=== PATIENT | female | born 1955 | race Caucasian/White ===

== ENCOUNTER 2016-11-27 17:14 | Emergency (ER) | payer BC ==
[2016-11-27 17:27] VITALS: RESP 16; TEMP 97.5
--- NOTE | 2016-11-27 18:05 | EDPHY ---
H & P Time Seen by Provider: 11/27/16 17:38 HPI/ROS: CHIEF COMPLAINT: Right leg DVT HISTORY OF PRESENT ILLNESS: Patient fell on her knees 2 weeks ago, mechanically not syncope, and has been having some right calf pain which did not go way. Her primary care physician ordered ultrasound today which showed DVT in the right leg. She denies chest pain or shortness of breath. Her left leg was getting better but her right leg is still swollen. She does not have any bony tenderness. REVIEW OF SYSTEMS: No fever or chills. She has been taking Advil which helps with the right calf pain. No palpitations or syncope. Not lightheaded. PAST MEDICAL HISTORY: Depression on Prozac Social history: Here with her brother. General Appearance: Alert and conversant, cooperative. Full sentences, no respiratory distress. Bruising on both knees. Full range of motion of both knees and ankles. Left calf compartment is soft and left foot is nontender with normal motor sensory and vascular. Right calf is tender but compartment is also soft with normal range of motion of knee and ankle. More swollen than the left side. A little bit of ecchymosis mid calf. No bony tenderness in the right lower extremity. Normal dorsalis pedis pulse, motor and sensory. Emergency Department course/MDM: Patient would prefer NOAC with no bridging. We will choose Eliquis with creatinine 0.6. Does not have symptoms or signs of pulmonary embolism. Warned bicycle helmet is mandatory. No recreational bicycle riding. Warned no Advil or aspirin or other nonsteroidals. 10mg po bid x 1 week then per PCP. Smoking Status: Never smoked Constitutional: Initial Vital Signs Temperature (C) 36.4 C 11/27/16 17:23 Heart Rate 87 11/27/16 17:23 Respiratory Rate 16 11/27/16 17:23 Blood Pressure 141/85 H 11/27/16 17:23 O2 Sat (%) 98 11/27/16 17:23 O2 Delivery Mode Room Air Allergies/Adverse Reactions: No Known Allergies Allergy (Unverified 11/27/16 17:27) Home Medications: Medication Instructions Recorded Advil 11/27/16 Apixaban [Eliquis] 10 mg PO BID 7 Days 11/27/16 Prozac 20 MG (*) 11/27/16 MDM/Departure - MDM Medications Given: Discontinued Medications Acetaminophen (Tylenol) 650 mg PO EDNOW ONE Stop: 11/27/16 18:14 Last Admin: 11/27/16 18:23 Dose: 650 mg Apixaban (Eliquis) 10 mg PO EDNOW ONE Stop: 11/27/16 18:12 Last Admin: 11/27/16 18:57 Dose: 10 mg - Depart Disposition: Home, Routine, Self-Care Clinical Impression: DVT (deep venous thrombosis) Qualifiers: DVT location: lower extremity Affected thrombotic vein of extremity: unspecified vein of extremity Chronicity: acute Laterality: right Qualified Code (s): I82.401 - Acute embolism and thrombosis of unspecified deep veins of right lower extremity Condition: Good Instructions: Deep Venous Thrombosis (ED) Additional Instructions: No Advil or aspirin. You will need additional blood thinners prescribed by her primary care physician. No riding of your bicycle unless your wearing a helmet. No riding of the bicycle for recreation until cleared by your primary care physician. Prescriptions: Apixaban [Eliquis] 10 mg PO BID 7 Days Referrals: Brad Santiago [Primary Care Provider] - 2-3 days, call for appt.
[2016-11-27 18:09] LABS: % IMMATURE GRANULYOCYTES 0.3 % (0.0-1.1); ABSOLUTE IMMATURE GRANULOCYTES 0.04 10^3/uL (0.00-0.10); ADD DIFF? NO; ADD MORPH? NO; ADD SCAN? NO; ATYPICAL LYMPHOCYTE FLAG 0 (0-99); FRAGMENT RBC FLAG 0 (0-99); HEMATOCRIT 36.7 % (38.0-47.0); HEMOGLOBIN 11.8 g/dL (12.6-16.3); LEFT SHIFT FLG 0 (0-99); LIPEMIA HEMOLYSIS FLAG 80 (0-99); MEAN CELL HEMOGLOBIN 27.5 pg (27.9-34.1); MEAN CELL HEMOGLOBIN CONCENTR. 32.2 g/dL (32.4-36.7); MEAN CELL VOLUME 85.5 fL (81.5-99.8); MEAN PLATELET VOLUME 9.4 fL (8.7-11.7); PLATELET CLUMPS FLAG 0 (0-99); PLATELET COUNT 175 10^3/uL (150-400); RED BLOOD CELL COUNT 4.29 10^6/uL (4.18-5.33); RED CELL DISTRIBUTION WIDTH 14.8 % (11.5-15.2)
[2016-11-27] MEDS ORDERED: APIXABAN 5 MG TAB PO ONE (18:11)
[2016-11-27] MEDS ORDERED: ACETAMINOPHEN 325 MG TAB PO ONE (18:13)
[2016-11-27 18:18] LABS: APTT 24.1 SEC (23.0-38.0); INR 1.13 (0.83-1.16); PROTIME(PATIENT) 14.4 SEC (12.0-15.0)
[2016-11-27 18:27] VITALS: BP 130/83; PULSE 77; O2SAT 94
== END 2016-11-27 18:58 | disposition home or self-care (01) ==
DX: I82.401 Acute embolism and thrombosis of unspecified deep veins of right lower extremity (principal)
CPT/HCPCS: 82947-QW

== ENCOUNTER 2016-12-03 16:50 | Emergency (ER) | payer BC ==
[2016-12-03 17:00] VITALS: RESP 16
--- NOTE | 2016-12-03 17:04 | EDPHY ---
H & P Stated Complaint: Slightly "queasy" x few days;feels like heart is racing; recent dx bilat DVT Time Seen by Provider: 12/03/16 17:04 HPI/ROS: CHIEF COMPLAINT: Presyncope, poor appetite HISTORY OF PRESENT ILLNESS: The patient was diagnosed with bilateral lower extremity DVT on 11/27. She was started on Eliquis at that point time. Today while at work she developed an episode of presyncope. She reports she has had a fairly poor appetite over the past several weeks. The patient had been taking a fair amount of NSAIDs prior to her diagnosis of DVT week ago. The patient did see the on-call physician for her primary care provider on Saturday of this week to discuss her Eliquis therapy she has no complaints of melena. The patient denies chest pain although she did have an episode of palpitations earlier today. The patient currently denies any acute complaints of abdominal pain, chest pain or difficulty breathing. REVIEW OF SYSTEMS: A comprehensive 10 point review of systems is otherwise negative aside from elements mentioned in the history of present illness. Source: Patient Exam Limitations: No limitations - Medical/Surgical History Hx Asthma: No Hx Chronic Respiratory Disease: No Hx Diabetes: No Hx Cardiac Disease: No Hx Renal Disease: No Hx Cirrhosis: No Hx Alcoholism: No Hx HIV/AIDS: No Hx Splenectomy or Spleen Trauma: No Other PMH: pmh:depression, DVT (11/2016). psh:none - Social History Smoking Status: Former smoker - Physical Exam Exam: General Appearance: Thin female, no acute distress Eyes: Pupils equal and round no pallor or injection ENT, Mouth: Mucous membranes moist Respiratory: There are no retractions, lungs are clear to auscultation Cardiovascular: Regular rate and rhythm Gastrointestinal: Abdomen is soft and nontender, no masses, bowel sounds normal Neurological: A&O, normal motor function, normal sensory exam, normal cranial nerves Skin: Warm and dry, no rashes Musculoskeletal: Neck is supple nontender Extremities: symmetrical, full range of motion Constitutional: Initial Vital Signs Temperature (C) 36.5 C 12/03/16 16:55 Heart Rate 86 12/03/16 16:55 Respiratory Rate 16 12/03/16 16:55 Blood Pressure 126/79 H 12/03/16 16:55 O2 Sat (%) 97 12/03/16 16:55 O2 Delivery Mode Room Air Allergies/Adverse Reactions: No Known Allergies Allergy (Verified 12/03/16 16:54) Home Medications: Medication Instructions Recorded Advil 11/27/16 Apixaban [Eliquis] 10 mg PO BID 7 Days 11/27/16 Prozac 20 MG (*) 11/27/16 Medical Decision Making - Diagnostics EKG Interpretation: EKG: Complete interpretation has been separately recorded in the [facility] archive. Summary impression: Sinus rhythm, rate 72 ED Course/Re-evaluation: I reviewed the results of the patient's past medical records including her ultrasound results from 11/27 and laboratory testing. The patient presents to the ED with presyncope in the setting of poor appetite over the past week. The patient is currently on a proton pump inhibitor. She is not taking NSAIDs. She has had no melena. The patient's hematocrit is stable. She has been on Eliquis for 6 days. She has no complaints of active chest pain or dyspnea. The patient denies any ongoing complaints of abdominal pain. She has had no nausea or vomiting. I do believe that she was simply presyncopal today. At this point time I do feel she can be discharged home with instructions to increase her fluid intake. She should follow up with her primary care provider for a recheck within the week. She should return to the ED for any chest pain, shortness of breath or other concerns. Differential Diagnosis: Differential diagnosis considered includes palpitations, anemia, dehydration, metabolic abnormality, renal failure - Data Points Laboratory Results: Laboratory Results 12/03/16 17:23 12/03/16 17:23 12/03/16 12/03/16 17:23 17:23 WBC 11.69 10^3/uL H 10^3/uL (3.80-9.50) RBC 4.57 10^6/uL 10^6/uL (4.18-5.33) Hgb 12.3 g/dL L g/dL (12.6-16.3) Hct 39.0 % % (38.0-47.0) MCV 85.3 fL fL (81.5-99.8) MCH 26.9 pg L pg (27.9-34.1) MCHC 31.5 g/dL L g/dL (32.4-36.7) RDW 15.0 % % (11.5-15.2) Plt Count 190 10^3/uL 10^3/uL (150-400) MPV 9.7 fL fL (8.7-11.7) Neut % (Auto) 77.5 % H % (39.3-74.2) Lymph % (Auto) 8.4 % L % (15.0-45.0) [place] % (Auto) 8.5 % % (4.5-13.0) Eos % (Auto) 4.8 % % (0.6-7.6) Baso % (Auto) 0.4 % % (0.3-1.7) Nucleat RBC Rel Count 0.0 % % (0.0-0.2) Absolute Neuts (auto) 9.06 10^3/uL H 10^3/uL (1.70-6.50) Absolute Lymphs (auto) 0.98 10^3/uL L 10^3/uL (1.00-3.00) Absolute Monos (auto) 0.99 10^3/uL H 10^3/uL (0.30-0.80) Absolute Eos (auto) 0.56 10^3/uL H 10^3/uL (0.03-0.40) Absolute Basos (auto) 0.05 10^3/uL 10^3/uL (0.02-0.10) Absolute Nucleated RBC 0.00 10^3/uL 10^3/uL (0-0.01) Immature Gran % 0.4 % % (0.0-1.1) Immature Gran # 0.05 10^3/uL 10^3/uL (0.00-0.10) Sodium 135 mEq/L mEq/L (134-144) Potassium 4.1 mEq/L mEq/L (3.5-5.2) Chloride 96 mEq/L L mEq/L (97-110) Carbon Dioxide 27 mEq/l mEq/l (22-31) Anion Gap 12 mEq/L mEq/L (8-16) BUN 15 mg/dL mg/dL (7-23) Creatinine 0.7 mg/dL mg/dL (0.6-1.0) Estimated GFR > 60 Glucose 81 mg/dL mg/dL (70-100) Calcium 9.7 mg/dL mg/dL (8.5-10.4) Departure - Departure Disposition: Home, Routine, Self-Care Clinical Impression: Pre-syncope Condition: Good Instructions: Syncope (ED) Additional Instructions: 1. Please try and increase your fluid intake. 2. Please schedule a follow-up appointment with your primary care provider for any ongoing symptoms past 2-3 days. 3. Return to the ED for any racing heart, chest pain, difficulty breathing or other concerns. Referrals: Brad Santiago [Primary Care Provider] - As per Instructions
--- NOTE | 2016-12-03 17:16 | CPEKG ---
Heart Rate: 72 RR Interval: 833 P-R Interval: 132 QRSD Interval: 100 QT Interval: 408 QTC Interval: 447 P [place]: 71 QRS [place]: 6 T Wave [place]: 33 EKG Severity - NORMAL ECG - EKG Impression: SINUS RHYTHM Electronically Signed By: Negrito Deng 03-Dec-2016 19:51:47
[2016-12-03 17:35] LABS: % IMMATURE GRANULYOCYTES 0.4 % (0.0-1.1); ABSOLUTE IMMATURE GRANULOCYTES 0.05 10^3/uL (0.00-0.10); ADD DIFF? NO; ADD MORPH? NO; ADD SCAN? NO; ATYPICAL LYMPHOCYTE FLAG 0 (0-99); FRAGMENT RBC FLAG 0 (0-99); HEMOGLOBIN 12.3 g/dL (12.6-16.3); LEFT SHIFT FLG 0 (0-99); LIPEMIA HEMOLYSIS FLAG 80 (0-99); MEAN CELL HEMOGLOBIN 26.9 pg (27.9-34.1); MEAN CELL HEMOGLOBIN CONCENTR. 31.5 g/dL (32.4-36.7); MEAN CELL VOLUME 85.3 fL (81.5-99.8); MEAN PLATELET VOLUME 9.7 fL (8.7-11.7); PLATELET CLUMPS FLAG 10 (0-99); PLATELET COUNT 190 10^3/uL (150-400); RED BLOOD CELL COUNT 4.57 10^6/uL (4.18-5.33)
[2016-12-03 17:51] LABS: ANION GAP 12 mEq/L (8-16); CALCIUM 9.7 mg/dL (8.5-10.4); CARBON DIOXIDE 27 mEq/l (22-31); CHLORIDE 96 mEq/L (97-110); CREATININE 0.7 mg/dL (0.6-1.0); GLOMERULAR FILTRATION RATE > 60; GLUCOSE 81 mg/dL (70-100); POTASSIUM 4.1 mEq/L (3.5-5.2); SODIUM 135 mEq/L (134-144)
[2016-12-03] MEDS ORDERED: NS 1,000 ML IV ONE (18:00)
[2016-12-03 19:23] VITALS: BP 139/85; PULSE 78; TEMP 98.1; O2SAT 95
== END 2016-12-03 19:22 | disposition home or self-care (01) ==
DX: R55 Syncope and collapse (principal); E86.9 Volume depletion, unspecified; Z87.891 Personal history of nicotine dependence

== ENCOUNTER 2016-12-04 20:00 | Inpatient (IN) | payer BC ==
--- NOTE | 2016-12-04 20:16 | EDPHY ---
H & P Time Seen by Provider: 12/04/16 20:04 HPI/ROS: CHIEF COMPLAINT: Left arm weakness and off balance HISTORY OF PRESENT ILLNESS: This 61-year-old woman was seen in the emergency department on 11/27 and started on Eliquis for right leg DVT. She was seen in the emergency department last night for presyncope and hydrated and felt better. Today around 10:00 a.m. she felt off balance and a little confused. She felt weak in her left hand. Symptoms moderate and not better worse with position. She felt like she was almost going to fall twice. No nonsteroidals. No fall or head trauma since started on Eliquis. REVIEW OF SYSTEMS: Eye: no change in vision or double vision ENT: no sore throat Cardiac: no chest pain or syncope Pulmonary: no cough or SOB Abdomen: no vomiting, diarrhea, abdominal pain Musculoskeletal: no back pain or neck pain, no new trauma Skin: no rash Neuro: As in HPI, no headache Constitutional: no fever : no urinary symptoms A comprehensive 10 point review of systems is otherwise negative aside from elements mentioned in the history of present illness. PAST MEDICAL HISTORY: DVT and depression Social history: No alcohol. Here with her brother. General Appearance: Alert and cooperative. Eyes: No scleral icterus. Pupils both reactive. ENT, Mouth: Normal mucous membranes. No tongue abrasion. Respiratory: Normal respiratory effort, breath sounds equal, lungs are clear to auscultation. Cardiovascular: Regular rate and rhythm. Gastrointestinal: Abdomen is soft and non tender. Neurological: Alert and oriented x3. Normally conversant. Left clean rice grader and reel tender strength and left leg strength are 4-5. Extraocular motion intact. She is able to walk unassisted but appears to have truncal ataxia. Skin: Warm and dry, no rashes. Musculoskeletal: No peripheral edema and no joint swelling. Psychiatric: Not agitated. Emergency Department course/MDM: EKG, CBC electrolytes, emergent noncontrast head CT to evaluate for intracranial bleeding. Not a stroke alert despite deficits onset within the last 12 hours because she is anticoagulated on Eliquis. Last known normal 10: [address] head reviewed Dr. Ana Francois at 2048. Small amount of medial temporal blood seen on noncontrast per her reading. 2054: Consult with Dr. Slater neurosurgery, who personally saw patient in emergency department, recommended MRI brain and cervical spine. Per Dr. Francois CTA shows no large vessel occlusion. Patient had sudden onset of expressive aphasia. Plan for MRI. Discussed with [facility] Dr. Chatman at 2145. Recommended MRI but no other acute emergent treatment at this time. 8: MRI reviewed personally and interpreted shows multiple foci of ischemic stroke on diffusion-weighted imaging. Admission to step-down. Reviewed with Dr. Francois radiology at 11:15 p.m. 2340: MRI and case in detail including Eliquis and DVT discussed with [facility] Neuro, Dr. Garces recommends stopping Eliquis, IV heparin drip unfractionated no loading bolus. 2345: Generalized tonic clonic seizure. Keppra load ordered 1 gram. Ativan 2mg IV, repeat CT scan head. Start heparin in ED if no acute bleed. Brother kept informed. Admit ICU. 0045: Maintaining airway on nasal cannula on return from CT, does not need intubation for airway protection at this time. Smoking Status: Former smoker Constitutional: Initial Vital Signs Temperature (C) 36.9 C 12/04/16 20:05 Heart Rate 91 12/04/16 20:05 Respiratory Rate 14 12/04/16 20:05 Blood Pressure 141/93 H 12/04/16 20:05 O2 Sat (%) 95 12/04/16 20:05 O2 Delivery Mode Room Air O2 (L/minute) 2 Allergies/Adverse Reactions: No Known Allergies Allergy (Verified 12/03/16 16:54) Home Medications: Medication Instructions Recorded Acetaminophen [Tylenol 325mg (*)] 325 mg PO PRN PRN 12/04/16 Apixaban [Eliquis] 5 mg PO BID 12/04/16 FLUoxetine [Prozac 10 MG (*)] 10 mg PO QID 12/04/16 buPROPion XL [Wellbutrin Xl] 150 mg PO DAILY 12/04/16 Medical Decision Making - Diagnostics EKG Interpretation: 12-lead EKG interpreted by me; official reading is in trace master. My interpretation is sinus rhythm with incomplete right bundle branch block Imaging Results: Imaging Impressions Head CT 12/04/16 20:15 Impression: 1. Focal hyperdensity medial inferior right temporal lobe, suspicious for small intraparenchymal bleed. 2. Subjacent area of wedge-shaped encephalomalacia that is suggestive of previous trauma or stroke. 3. I am not definitive that any of the above findings would explain left-sided leg and arm weakness. If clinically indicated, MRI of the brain can be performed for further assessment. Findings and recommendations discussed with Anival Cisneros M.D., at 2046 hours, on December 04, 2016. Final report concurs with initial preliminary interpretation. Head CTA 12/04/16 20:36 Impression: Normal. Findings and recommendations discussed with ANIVAL CISNEROS at 2119 hour, 2016. Final report concurs with initial preliminary interpretation. Neck CTA 12/04/16 20:36 Impression: Nothing acute. Findings and recommendations discussed with ANIVAL CISNEROS at 2119 hour, 2016. Final report concurs with initial preliminary interpretation.. Note: All stenoses are calculated using NASCET Criteria. Brain MRI 12/04/16 21:28 Impression: 1. Significant abnormal diffusion-weighted imaging with multiple areas of acute/ subacute stroke in bilateral cerebellum, right temporal region, bilateral occipital lobes, right frontoparietal junction, and bilateral frontal lobes near the vertex. The quantity of the abnormal signal, as well as the scattered nature of these signals, suggest microvascular ischemic disease or embolic phenomenon, rather than focal vascular occlusion. Retrospective review of the CT angiogram performed earlier today confirms lack of CT evidence of vasculitis. 2. Although a gradient echo sequence was not performed with this MRI, I do not see definitive hemosiderin signal at the medial right temporal lobe corresponding to the questioned area of possible bleed on CT scan. I am less concerned about a potential intracranial bleed based on this MRI. Findings and recommendations discussed with Anival Cisneros at 2318 hours on November. Final report concurs with initial preliminary interpretation. Cervical Spine MRI 12/04/16 21:28 Impression: 1. Degenerative disk disease at C5-C6, with moderate to severe bilateral foraminal stenoses. 2. No significant central canal stenosis at any level. Differential Diagnosis: Differential considered including but not limited to subdural, intraparenchymal hemorrhage, intracranial venous thrombosis, metabolic abnormality. Consult/Admit Bed Type: [facility] 2127, [facility] 2133 Critical Care Time: Critical care time spent by me, Dr. Cisneros, exclusively with the care of this patient was 60 minutes, exclusive of PA or COMPOSITION WEATHERBOARD APPLIER time and exclusive of separate procedures. The organ system at risk was neurologic and I ordered multiple diagnostic studies, consultation with [facility] and neurosurgeon, discussion with hospitalist, repeat and serial examination, unfractionated intravenous heparin drip, ativan and keppra for seizure control; to stabilize the patient and prevent worsening of the patient's condition. - Data Points Laboratory Results: Laboratory Results 12/04/16 20:20 12/04/16 20:20 12/04/16 12/04/16 12/04/16 20:26 20:20 20:20 WBC RBC Hgb POC Hgb 13.3 gm/dL gm/dL (12.6-16.3) Hct POC Hct 39 % % (38-47) MCV MCH MCHC RDW Plt Count MPV Neut % (Auto) Lymph % (Auto) [place] % (Auto) Eos % (Auto) Baso % (Auto) Nucleat RBC Rel Count Absolute Neuts (auto) Absolute Lymphs (auto) Absolute Monos (auto) Absolute Eos (auto) Absolute Basos (auto) Absolute Nucleated RBC Immature Gran % Immature Gran # PT 16.4 SEC H SEC (12.0-15.0) INR 1.32 H (0.83-1.16) APTT 29.1 SEC SEC (23.0-38.0) POC Sodium 138 mEq/L mEq/L (134-144) Sodium 132 mEq/L L mEq/L (134-144) POC Potassium 3.4 mEq/L mEq/L (3.3-5.0) Potassium 3.5 mEq/L mEq/L (3.5-5.2) POC Chloride 97 mEq/L mEq/L (97-110) Chloride 96 mEq/L L mEq/L (97-110) Carbon Dioxide 26 mEq/l mEq/l (22-31) Anion Gap 10 mEq/L mEq/L (8-16) POC BUN 9 mg/dL mg/dL (7-23) BUN 11 mg/dL mg/dL (7-23) Creatinine 0.7 mg/dL mg/dL (0.6-1.0) POC Creatinine 0.6 mg/dL mg/dL (0.6-1.0) Estimated GFR > 60 Glucose 103 mg/dL H mg/dL (70-100) POC Glucose 99 mg/dL mg/dL (70-100) Calcium 9.0 mg/dL mg/dL (8.5-10.4) 12/04/16 20:20 WBC 13.16 10^3/uL H 10^3/uL (3.80-9.50) RBC 4.40 10^6/uL 10^6/uL (4.18-5.33) Hgb 11.9 g/dL L g/dL (12.6-16.3) POC Hgb Hct 37.2 % L % (38.0-47.0) POC Hct MCV 84.5 fL fL (81.5-99.8) MCH 27.0 pg L pg (27.9-34.1) MCHC 32.0 g/dL L g/dL (32.4-36.7) RDW 15.0 % % (11.5-15.2) Plt Count 128 10^3/uL L D 10^3/uL (150-400) MPV 9.5 fL fL (8.7-11.7) Neut % (Auto) 77.3 % H % (39.3-74.2) Lymph % (Auto) 7.1 % L % (15.0-45.0) [place] % (Auto) 11.2 % % (4.5-13.0) Eos % (Auto) 3.4 % % (0.6-7.6) Baso % (Auto) 0.5 % % (0.3-1.7) Nucleat RBC Rel Count 0.0 % % (0.0-0.2) Absolute Neuts (auto) 10.17 10^3/uL H 10^3/uL (1.70-6.50) Absolute Lymphs (auto) 0.94 10^3/uL L 10^3/uL (1.00-3.00) Absolute Monos (auto) 1.48 10^3/uL H 10^3/uL (0.30-0.80) Absolute Eos (auto) 0.45 10^3/uL H 10^3/uL (0.03-0.40) Absolute Basos (auto) 0.06 10^3/uL 10^3/uL (0.02-0.10) Absolute Nucleated RBC 0.00 10^3/uL 10^3/uL (0-0.01) Immature Gran % 0.5 % % (0.0-1.1) Immature Gran # 0.06 10^3/uL 10^3/uL (0.00-0.10) PT INR APTT POC Sodium Sodium POC Potassium Potassium POC Chloride Chloride Carbon Dioxide Anion Gap POC BUN BUN Creatinine POC Creatinine Estimated GFR Glucose POC Glucose Calcium Medications Given: Bupropion HCl (Wellbutrin Xl) 150 mg PO DAILY [facility] Stop: 06/03/17 08:59 Last Admin: 12/05/16 08:07 Dose: Not Given Fluoxetine HCl (Prozac) 10 mg PO QID AAMIR Stop: 06/03/17 05:59 Last Admin: 12/05/16 07:28 Dose: Not Given Discontinued Medications Heparin Sodium (Porcine) (Heparin 50 Units/Ml (Premix)) 500 mls @ 0 mls/hr IV EDNOW ONE; Per Protocol PRN Reason: Protocol Stop: 12/04/16 23:42 Last Admin: 12/05/16 01:02 Dose: 500 mls Levetiracetam 1,000 mg/ Sodium (Chloride) 110 mls @ 440 mls/hr IV ONCE ONE Stop: 12/05/16 00:29 Last Admin: 12/05/16 00:35 Dose: 110 mls Lorazepam (Ativan Injection) 1 mg IVP EDNOW ONE Stop: 12/04/16 23:59 Last Admin: 12/04/16 23:55 Dose: 1 mg Lorazepam (Ativan Injection) 1 mg IVP EDNOW ONE Stop: 12/05/16 00:19 Last Admin: 12/05/16 00:15 Dose: 1 mg Lorazepam (Ativan Injection) 2 mg IVP EDNOW ONE Stop: 12/05/16 00:55 Last Admin: 12/05/16 01:02 Dose: 2 mg Lorazepam (Ativan Injection) 0.5 - 1 mg IVP Q2 PRN PRN Reason: ANXIETY Stop: 06/03/17 02:49 Last Admin: 12/05/16 03:31 Dose: 1 mg Midazolam HCl (Versed) 2 mg IVP EDNOW ONE Stop: 12/05/16 00:19 Last Admin: 12/05/16 00:20 Dose: 2 mg Point of Care Test Results: 12/04/16 20:26 POC Sodium 138 POC Potassium 3.4 POC Chloride 97 POC BUN 9 POC Creatinine 0.6 POC Glucose 99 Departure - Departure Disposition: [facility] Clinical Impression: Left arm weakness, Ischemic stroke Condition: Critical
[2016-12-04 20:26] LABS: % IMMATURE GRANULYOCYTES 0.5 % (0.0-1.1); ABSOLUTE IMMATURE GRANULOCYTES 0.06 10^3/uL (0.00-0.10); ADD DIFF? NO; ADD MORPH? NO; ADD SCAN? NO; ATYPICAL LYMPHOCYTE FLAG 0 (0-99); FRAGMENT RBC FLAG 0 (0-99); HEMATOCRIT 37.2 % (38.0-47.0); HEMOGLOBIN 11.9 g/dL (12.6-16.3); LEFT SHIFT FLG 0 (0-99); LIPEMIA HEMOLYSIS FLAG 80 (0-99); MEAN CELL VOLUME 84.5 fL (81.5-99.8); MEAN PLATELET VOLUME 9.5 fL (8.7-11.7); PLATELET CLUMPS FLAG 0 (0-99); PLATELET COUNT 128 10^3/uL (150-400)
[2016-12-04] MEDS ORDERED: IOPAMIDOL (ISOVUE 370) 100 ML BTL IV ONE (20:33)
[2016-12-04 20:36] LABS: INR 1.32 (0.83-1.16); PROTIME(PATIENT) 16.4 SEC (12.0-15.0)
[2016-12-04 20:37] LABS: APTT 29.1 SEC (23.0-38.0)
[2016-12-04 20:42] LABS: ANION GAP 10 mEq/L (8-16); CARBON DIOXIDE 26 mEq/l (22-31); CHLORIDE 96 mEq/L (97-110); CREATININE 0.7 mg/dL (0.6-1.0); GLOMERULAR FILTRATION RATE > 60; GLUCOSE 103 mg/dL (70-100); POTASSIUM 3.5 mEq/L (3.5-5.2); SODIUM 132 mEq/L (134-144)
--- NOTE | 2016-12-04 23:29 | CPEKG ---
Heart Rate: 88 RR Interval: 682 P-R Interval: 132 QRSD Interval: 108 QT Interval: 396 QTC Interval: 480 P [place]: 72 QRS [place]: 22 T Wave [place]: 50 EKG Severity - ABNORMAL ECG - EKG Impression: SINUS RHYTHM EKG Impression: LEFT ATRIAL ABNORMALITY EKG Impression: INCOMPLETE RIGHT BUNDLE BRANCH BLOCK Electronically Signed By: Vipul Ladd 04-Dec-2016 23:30:02
[2016-12-04] MEDS ORDERED: HEPARIN/DEXTROSE 500 ML IV ONE (23:41)
[2016-12-04] MEDS ORDERED: NS 1,000 ML IV SCH (23:45)
[2016-12-04] MEDS ORDERED: ONDANSETRON DISINTEGRATING 4 MG TAB PO PRN (23:49)
[2016-12-04] MEDS ORDERED: ONDANSETRON 4 MG/2 ML VIAL IVP PRN (23:49)
[2016-12-04] MEDS ORDERED: levETIRAcetam 500 MG in NS 100 ML IV ONE ×2 (23:52→23:58)
[2016-12-04] MEDS ORDERED: LORazepam 2 MG/ML INJ ONE (23:54)
[2016-12-04] MEDS ORDERED: LORazepam 2 MG/ML INJ IVP ONE (23:58)
[2016-12-05] MEDS ORDERED: levETIRAcetam 1,000 MG in NS 100 ML IV ONE (00:15)
[2016-12-05] MEDS ORDERED: MIDAZOLAM 2 MG/2 ML VIAL IVP ONE (00:18)
[2016-12-05] MEDS ORDERED: LORazepam 2 MG/ML INJ IVP ONE ×2 (00:18→00:54)
[2016-12-05] MEDS ORDERED: MIDAZOLAM 2 MG/2 ML VIAL ONE (00:19)
[2016-12-05] MEDS ORDERED: LORazepam 2 MG/ML INJ ONE (00:58)
--- NOTE | 2016-12-05 01:25 | GHP ---
[f rep st] HISTORY AND PHYSICAL DATE OF ADMISSION: 12/04/2016 CHIEF COMPLAINT: Left-sided weakness. HISTORY OF PRESENT ILLNESS: This is a 61-year-old female who does have a previous history of depres shadi, anxiety, and anorexia, who, about a couple weeks ago, fell on her knees. She then developed r ight calf swelling, and her primary care doctor diagnosed her with a DVT. She was started on Eliqui s on 11/27/2016. She came back yesterday with reports of heart racing. EKG in the emergency depart ment appeared to be sinus rhythm. She was at home, but then today, had left-sided weakness. She re ports that her appetite had been poor over the last several weeks. She is not having chest pains. She is not having any palpitations currently. REVIEW OF SYSTEMS: A 10-point review of systems was obtained, and other than stated, was negative. PAST MEDICAL HISTORY: 1. Depression. 2. Anxiety. 3. Anorexia. 4. Recent DVT. MEDICATIONS: Include bupropion, Prozac, and Eliquis recently. SOCIAL HISTORY: No smoking. Lives with her . FAMILY HISTORY: Positive history of coronary disease but no strokes. PHYSICAL EXAMINATION: VITAL SIGNS: Afebrile. Blood pressure is 146/109, heart rate 93, oxygen sat uration 94% on room air. GENERAL: Patient is well developed, in no apparent distress, but quite th in and cachectic. NECK: Supple. No thyromegaly. LUNGS: Good effort. Clear to auscultation bila terally. CARDIOVASCULAR: Regular rate and rhythm. No murmurs, gallops. ABDOMEN: Positive bowel sounds. Soft, nontender, nondistended. No hepatosplenomegaly. EXTREMITIES: No clubbing, cyanosis , or edema. SKIN: Without rash. Dry, intact. NEUROLOGIC: Alert and oriented x3, although not ve ry clear in her conversations. She has a significant left-sided facial droop and left-sided weaknes s. No sensory deficits. LABS: White blood cell count 13, hemoglobin 11, platelets are 128. Sodium 132, potassium 315, crea tinine is 0.7. CT scan of the head showed possible focal hyperdensity in the medial inferior to right temporal lobe and an area of wedge-shaped encephalomalacia. MRI of the brain has not been read formally, but shireen bee personally reviewed and interpreted shows embolic CVAs in multiple areas. ASSESSMENT: This is a 61-year-old female coming with an embolic cerebrovascular accident. PLAN: 1. Embolic CVA. Cause is uncertain. She did have heart palpitations yesterday. I suppose this co uld be atrial fibrillation. She has been on anticoagulation but perhaps it was not long enough. Be cause of the embolic CVAs, I am going to take her off Eliquis and start heparin. Will have Neurolog y see her in the morning. I will get an echocardiogram. She has had a neck CTA. 2. Recent DVT, should be covered by heparin. 3. History of depression and anxiety. /[id number]/MODL
[2016-12-05 02:48] LABS: % IMMATURE GRANULYOCYTES 0.5 % (0.0-1.1); ABSOLUTE IMMATURE GRANULOCYTES 0.07 10^3/uL (0.00-0.10); ADD DIFF? NO; ADD MORPH? NO; ADD SCAN? NO; ATYPICAL LYMPHOCYTE FLAG 0 (0-99); FRAGMENT RBC FLAG 0 (0-99); HEMATOCRIT 35.8 % (38.0-47.0); HEMOGLOBIN 11.6 g/dL (12.6-16.3); LEFT SHIFT FLG 0 (0-99); LIPEMIA HEMOLYSIS FLAG 80 (0-99); MEAN CELL HEMOGLOBIN 27.5 pg (27.9-34.1); MEAN CELL HEMOGLOBIN CONCENTR. 32.4 g/dL (32.4-36.7); MEAN CELL VOLUME 84.8 fL (81.5-99.8); MEAN PLATELET VOLUME 10.4 fL (8.7-11.7); PLATELET CLUMPS FLAG 20 (0-99); PLATELET COUNT 126 10^3/uL (150-400); RED BLOOD CELL COUNT 4.22 10^6/uL (4.18-5.33); RED CELL DISTRIBUTION WIDTH 14.9 % (11.5-15.2)
[2016-12-05] MEDS ORDERED: LORazepam 2 MG/ML INJ IVP PRN (02:50)
[2016-12-05 02:57] LABS: INR 1.39 (0.83-1.16)
--- NOTE | 2016-12-05 06:31 | GCON ---
[f rep st] CONSULTATION NEUROSURGERY CONSULT DATE OF CONSULTATION: 12/04/2016 The patient was seen and evaluated in the emergency department at [facility] at appr oximately 9 p.m. on 12/04/2016. HISTORY OF PRESENT ILLNESS: The patient is a 61-year-old woman, who has had new onset of left hand weakness and imbalance of her gait since she woke up this morning. She was last known well about 10 p.m. last night when she went to bed, but awoke with these symptoms this morning. She was evaluate d in the emergency department where CT of the head was done, as well as a CTA of the head, and this potentially showed a very small hemorrhage in the area of the temporal stem. I reviewed these scans . I am not convinced that there is indeed a hemorrhage there, but the patient was recently started on Eliquis about a week ago for deep vein thrombosis in the leg. Upon my evaluation, she has no com plaints of any headaches, but is just complaining of the hand weakness. She has never had episodes like this before. When I originally saw her in the emergency department, I had recommended MRI of t he head and cervical spine and these have now come back by the time of this dictation showing multip le DWI positive embolic strokes throughout both ICA and vertebral artery territories. These are all small without any mass effect. The MRI of the cervical spine shows some degenerative disease, but no spinal cord or nerve compression. REVIEW OF SYSTEMS: A 10-point review of systems is negative, other than that described in the HPI. PAST MEDICAL HISTORY: 1. Depression. 2. Deep vein thrombosis on Eliquis. FAMILY HISTORY: Negative for stroke. SOCIAL HISTORY: The patient denies any alcohol, tobacco or other drug use and is accompanied by her significant other. ALLERGIES: No known drug allergies. HOME MEDICATIONS: 1. Tylenol. 2. Eliquis. 3. Fluoxetine. 4. Wellbutrin. PHYSICAL EXAM: VITAL SIGNS: Currently she is afebrile with normal stable vital signs. GENERAL: S he is awake, alert, and oriented x3. Her speech is clear and fluent. HEENT: Pupils are equal, rou nd, and reactive to light. Her extraocular movements are intact. Her face is symmetric. Tongue is midline. EXTREMITIES: In the upper limbs, she has full 5/5 strength at the deltoid and 4/5 streng th at the triceps and biceps on the left. 5/5 strength of the biceps and triceps on the right. 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 Her sensation is intact. Light touch and pinprick. Deep tendon reflexes are somewh at brisk at the brachioradialis and Juan's is negative. In the lower extremities, she has 5/5 s trength at the hip flexors, extensors, knee flexors, extensors, and plantar and dorsiflexion bilater ally. Her sensation is intact throughout the legs, but the deep tendon reflexes are brisk at the kn ees and ankles. She also has upgoing toes with Babinski, but no clonus. IMAGING REVIEW: See HPI. LABORATORY REVIEW: The white count is 13.1, hemoglobin 11.9, hematocrit 37.2, platelet count is a 1 28,000. Sodium is 132, potassium 3.5, BUN 11, creatinine 0.7. Glucose is 103. Her PT is 16.4, INR is 1.3 and PTT is 29.2. ASSESSMENT AND PLAN: The patient is a 61-year-old woman, who appears to have embolic strokes throug hout the bilateral cerebral hemispheres and the cerebellum. This would suggest a central source of embolism, such as the heart. Would recommend at this time proceeding with a stroke workup. I do no t see obvious signs of any bleeding in the brain and, therefore, I do not see any reason that her an ticoagulation needs to be stopped or reversed. At this point, I do not see really any contraindicat ions for any anticoagulation or any other further treatment that she might need. Would recommend [facility] Neurology consultation and further workup as directed by Stroke Neurology. Neurosurgery will s ign off at this point, but I would be happy to reassess if there are any other concerns or certainly if there are any other changes in the patient's exam. Please do not hesitate to call me at any debbie e. Thanks for the kind consultation. /[id number]/MODL
[2016-12-05 06:55] LABS: % IMMATURE GRANULYOCYTES 0.4 % (0.0-1.1); ABSOLUTE IMMATURE GRANULOCYTES 0.06 10^3/uL (0.00-0.10); ADD DIFF? NO; ADD MORPH? NO; ADD SCAN? NO; ATYPICAL LYMPHOCYTE FLAG 0 (0-99); FRAGMENT RBC FLAG 0 (0-99); HEMATOCRIT 36.9 % (38.0-47.0); LEFT SHIFT FLG 0 (0-99); LIPEMIA HEMOLYSIS FLAG 80 (0-99); MEAN CELL HEMOGLOBIN 27.3 pg (27.9-34.1); MEAN CELL HEMOGLOBIN CONCENTR. 32.5 g/dL (32.4-36.7); MEAN CELL VOLUME 83.9 fL (81.5-99.8); MEAN PLATELET VOLUME 10.4 fL (8.7-11.7); PLATELET CLUMPS FLAG 0 (0-99); PLATELET COUNT 110 10^3/uL (150-400); RED CELL DISTRIBUTION WIDTH 14.9 % (11.5-15.2)
[2016-12-05 07:18] LABS: ALANINE AMINOTRANSFERASE 124 IU/L (9-52); ALBUMIN 3.2 g/dL (3.5-5.0); ALKALINE PHOSPHATASE 820 IU/L (38-126); ANION GAP 9 mEq/L (8-16); ASPARTATE AMINOTRANSFERASE 330 IU/L (14-46); CALCIUM 8.7 mg/dL (8.5-10.4); CARBON DIOXIDE 27 mEq/l (22-31); CHLORIDE 102 mEq/L (97-110); CHOLESTEROL 276 mg/dL (140-220); CREATININE 0.6 mg/dL (0.6-1.0); GLOMERULAR FILTRATION RATE > 60; GLUCOSE 103 mg/dL (70-100); HIGH DENSITY LIPOPROTEIN 40 mg/dL (40-85); LDL/HDL RATIO 5.23 RATIO (1.00-3.22); LOW DENSITY LIPOPROTEIN 209 mg/dL (80-100); NON-HIGH DENSITY LIPOPROTEIN 236 mg/dL (90-129); POTASSIUM 3.5 mEq/L (3.5-5.2); SODIUM 138 mEq/L (134-144); TOTAL PROTEIN 5.9 g/dL (6.3-8.2); TRIGLYCERIDE 136 mg/dL (35-135); VERY LOW DENSITY LIPOPROTEINS 27 mg/dL (8-25)
[2016-12-05] MEDS: FLUoxetine 10 MG CAP PO SCH ×4 (07:28→21:53)
--- NOTE | 2016-12-05 07:31 | HOSPPROG ---
Hospitalist Progress Note Assessment/Plan: Overnight update: Pt had seizure in ED, went to CT scan which showed no change. Loaded with keppra and given several doses of ativan. [facility] was called who recommended heparin gtt without bolus. Has been quite restless and confused overnight. Will reduce benzo and substitute with haldol Get EEG, cont keppra, neuro will see today Objective: Vital Signs Temp Pulse Resp BP Pulse Ox 37.1 C 92 20 140/80 H 99 12/05/16 06:00 12/05/16 06:00 12/05/16 06:00 12/05/16 06:00 12/05/16 06:00 Laboratory Results 12/05/16 06:35 12/05/16 06:35 12/04/16 12/05/16 12/06/16 05:59 05:59 05:59 Intake Total 178 Output Total 650 Balance -472 PT 17.0 SEC (12.0-15.0) H 12/05/16 02:30 INR 1.39 (0.83-1.16) H 12/05/16 02:30 ICD10 Worksheet Patient Problems: Problems Problem Status Onset Aphasia Acute Left arm weakness Acute
[2016-12-05] MEDS ORDERED: buPROPion XL 150 MG TAB PO SCH (09:00)
[2016-12-05] MEDS: levETIRAcetam 500 MG in NS 100 ML IV SCH ×2 (09:23→21:54)
[2016-12-05] MEDS: HALOPERIDOL LACT 5 MG/ML INJ IVP PRN ×3 (09:24→22:05)
--- NOTE | 2016-12-05 11:57 | GCON ---
[f rep st] CONSULTATION NEUROLOGIC CONSULTATION REFERRING PHYSICIAN: Akosua Willson MD HISTORY OF PRESENT ILLNESS: The patient is a 61-year-old woman, whom I am asked to see in neurologi c consultation regarding stroke and seizure. She has a history of chronic anorexia and depression, but has generally been stable according to her brother. She normally lives alone. She developed a DVT about 1 month ago, and was started on Eliquis at that time. Since then, she has apparently been stable on returning to work. 2 days ago, she called her brother and said she just was not feeling very well, and it was very nonspecific. He said it was unusual for her to not be working, and appar ently co-workers noticed that she was definitely different. She was seen in the emergency room that day and assessed with suspected dehydration, and was feeling better with IV fluids and was discharg ed. Yesterday, she again was not feeling very well, and was advised to go to the hospital for evalu ation. She was seen by Dr. Vipul العراقي and subsequently by Neurosurgery as well as Akosua Willson. There was initially a concern that there might be some hemorrhage in the right hemisphere, but that was s ubsequently felt to be unlikely, and MRI has shown multiple areas of small diffusion weighted anomal ies in the anterior and posterior regions, and supratentorial and infratentorial, without any large ischemic areas, but multiple small areas of ischemia, presumably on an embolic basis. Vasculature d oes not show any large or small vessel stenosis, and no evidence of vasculitis by imaging criteria. She was seen via telemedicine, and the feeling was that it was best for her to be treated with IV h eparin, and I stopped the Eliquis. She had a seizure in the emergency department, which occurred af ter she also had an abrupt loss of language skill with aphasia. Her followup head CT did not show a ny new lesions and no hemorrhage. She has been in the ICU and monitored, where she has been rather agitated and not participating in significant activity, although she had started to follow some comm ands with her nurse this morning. Currently, she is in the process of undergoing echocardiogram, an d needed to receive Haldol in order to be calm enough for that to be performed. The patient cannot provide any meaningful information herself in her current state of sedation and agitation. Her brot her says that when he last saw her, she was very restless and was not communicating last night. She has not had a similar phenomenon, that he is aware of, in the past. REVIEW OF SYSTEMS: 10-point review of systems was completed and unremarkable except for that noted above. Outside of depression and anorexia, there is some history of anxiety and this recent DVT as outlined . She has had chronic treatment with bupropion and Prozac. She lives alone, but her brother lives next door. She does not smoke, but smoked a little bit until 25 or 30 years ago. She does not cons ume alcohol. FAMILY HISTORY: Some coronary disease but no unusual clotting disorders he is aware of. HOME MEDICATIONS: Prozac, Wellbutrin, Tylenol, and Eliquis. She is now on Keppra 500 mg IV twice d aily after getting a loading dose, Haldol as needed, IV heparin infusion, bupropion, and Prozac. ALLERGIES: No known drug allergies. PHYSICAL EXAM: VITAL SIGNS: Blood pressures have been in the 130 to 160 range systolic, diastolic around 80. Pulses been elevated toward 100 for much of the time. Respiratory rate 24, temperature 37.1, no documented fevers. GENERAL APPEARANCE: In her current state, she is restless. NECK: Sup ple with no bruits or masses. CARDIAC: Regular rate and rhythm. No murmur. SKIN: No skin rashes . NEUROLOGIC: She is in an agitated state with eyes closed and does not have spontaneous eye openi ng. When I pull her eyes open she briefly tends toward, me but does not have any meaningful languag e. She makes some sounds, but no verbal language. She seemed to follow a few commands in her right hand and leg, to squeeze and wiggle the toes, but there seems to be definite asymmetry in the movem ents, with more weakness on the left than the right. She has spontaneous clonus occurring in the le ft lower extremity, and a Babinski sign on the left with hyperreflexia, left compared to right. Mor e detailed actual muscle power is hard to assess, but she demonstrates at least 4/5 on the right and 3/5 or so on the left, but inconsistent and a little weaker in the left arm, it appears. Sensation is unreliable for great detail, but she seems to withdraw to pain on the right and inconsistent on the left. IMPRESSION: The patient has multiple areas of ischemic change in both hemispheres as outlined, and supratentorial and infratentorial. Embolic shower would be the typical reason this might occur, but preliminary echocardiogram did not suggest an obvious patent foramen ovale, which should be the mec hanism I would expect in the setting of a DVT. It is unusual for this to occur in the setting of an ticoagulation. It is also possible that she misses doses of the Eliquis. In any case, she became r estless and aphasic, and has had a generalized seizure and is now on Keppra. I do not believe she i s having clinical seizures right now. Subclinical seizure is possible, and we will be obtaining EEG . Formal reading of the echocardiogram is pending. I agree with ongoing IV heparin for now and shirin ntenance therapy with Keppra. We will try to minimize the sedating drugs as much as possible to see how much she can communicate. I had a detailed discussion with her brother regarding the situation and the unknown prognosis at this stage. TOTAL UNIT TIME: 75 minutes. I will continue to monitor her progress. /[id number]/MODL
--- NOTE | 2016-12-05 14:02 | GCON ---
[f rep st] CONSULTATION REASON FOR ADMISSION: Stroke. HISTORY OF PRESENT ILLNESS: The patient is a 61-year-old white female with a past medical history o f DVT, anxiety, anorexia and depression. She had a fall a few weeks ago, was diagnosed with a DVT a nd started on Eliquis by her primary care physician. She presented to the emergency room with tachy cardia, she subsequently had altered mental status. CT scan of the head showed hyperdensity in the medial inferior to right temporal lobe, and there are multiple areas of embolic stroke. She was sub sequently admitted to the intensive care unit. The patient is currently somewhat agitated. While s he is not moving her left arm, she is moving her right arm and both legs. Again, she is markedly ag itated. PAST MEDICAL HISTORY: Significant for depression, anxiety, anorexia and DVT. SOCIAL HISTORY: No history of tobacco use. No known alcohol use. She lives with her . Has excellent family support. MEDICATIONS: Include Eliquis, Prozac, bupropion. PHYSICAL EXAMINATION: VITAL SIGNS: Blood pressure is 125/76, pulse 86, respirations 22, temperatur e 37.1, oxygen saturation 99% on 2 L. GENERAL: She is a thin, cachectic 61-year-old, white female, looks older than her stated age. HEENT: Eyes BILL, EOMI. Throat shows no erythema or tonsillar h ypertrophy. NECK: Supple. No cervical adenopathy. HEART: Regular rate and rhythm with a 2/6 sys tolic murmur left sternal border without radiation. LUNGS: Diminished breath sounds, but no wheeze . ABDOMEN: Soft, nontender. Bowel sounds are present all 4 quadrants. EXTREMITIES: No clubbing, cyanosis, or edema. LABORATORIES: White count is 14.3, hemoglobin 12, hematocrit 36, platelet count is 110. INR is 1.3 9. Sodium 138, potassium 3.5, chloride 102, CO2 is 27, BUN 11, creatinine 0.6, glucose is 103. AST is elevated to 330, ALT is 124, alkaline phosphatase 820. CT scan of the head shows focal hyperden sity in the medial inferior right temporal lobe. IMPRESSION: 1. Acute stroke. 2. Seizures. 3. Encephalopathy with agitation. 4. History of deep venous thrombosis. 5. Cachexia and anorexia. 6. History of depression and anxiety. RECOMMENDATIONS: 1. Agree with IV heparin. 2. PT and OT. 3. Adequate nutrition. 4. DVT and PE prophylaxis. 5. Stress ulcer prophylaxis. /[id number]/MODL
[2016-12-05] MEDS ORDERED: PERFLUTREN LIPID MICROSPHERES 1.1 MG/ML VIAL IV ONE (14:15)
--- NOTE | 2016-12-05 14:26 | ASMTCMCOM ---
CM Note CM Note Notes: Sofy Guzman, Admitting Manager with Dr. Fajardo's office called to request we check on patient's brother who needs support re: how to care for patient at home. Patient's brother reports patient was falling a lot at home and she does not accept help easi ly. Sofy says they will continue to follow patient while she is in the hospital and would appreciate coordinating care at d/c with us. Sofy"s direct li ne is [phone].Patient has a hx of depression, anxiety, and anorexia. She is scheduled for an EEG later today. Spoke with patient's si ster who will pass the message to patient's brother re: Dr. Fajardo's office staying in close communication with us per his request. BRICE donovan Date Signed: 12/05/2016 02:21 PM Electronically Signed By:Jillian Gross
--- NOTE | 2016-12-05 17:07 | HOSPPROG ---
Hospitalist Progress Note Assessment/Plan: assessment: 61-year-old female presents with acute multifocal cerebrovascular accident Plan: 1. cerebrovascular accident. Acute, multifocal, suspected embolic source, unclear whether this is from her lower extremity DVT or cardiac in origin -discussed with Dr. Boo, there does not appear to be PF0 and his interpretation of the MRI is that these are most likely emboli and not small vessel ischemic infarcts -will continue on heparin drip given that the likely sources embolic -LDL 210, placed on statin -ongoing neurology consultation appreciated - physical and occupational therapy once able -counseled patient's brother extensively regarding anticipated recovery and the need to monitor her closely for the next 24-48 hours for any signs of neurologic improvement 2. Encephalopathy. Acute, evidenced by global brain dysfunction characterized as somnolence, non directable movements, uncooperative, all of which is an acute change from her baseline, secondary to recent CVA as well as possible toxic effects of Ativan received overnight -received Haldol this morning, attempts to redirect the patient comma restraints if needed, attempt to avoid pharmacologic methods so as to not worsen encephalopathy 3. seizure. Acute, Secondary to CVA, occurred overnight, loaded with Keppra, does not appear to be in active status -get EEG now 4. Hyponatremia. Acute, most likely secondary to poor fluid intake in the setting of above, received normal saline, resolved 5. Transaminitis. Continues alcohol abuse pattern, unclear whether these are secondary to hepatic infarcts -will get liver ultrasound -has evidence of poor synthetic function, will discuss alcohol abuse more directly with brother tomorrow 6. high blood pressure. Unclear chronicity, currently permissive hypertension 7. Systemic inflammatory response syndrome. Evidenced by tachycardia and leukocytosis, patient is high risk for aspiration pneumonia, monitor for any increase in oxygen requirements or abnormal breath sounds -low threshold to get chest x-ray if needed -continue on IV fluids off of antibiotics Diet. NPO Prophylaxis. High risk patient, currently on systemic anticoagulation Code. Full, patient's brother is by default her MD MORAN, she has never assigned specific proxy now has not discussed code status with any family members Disposition. Anticipated discharge uncertain this time, patient remains critically ill. 35 minutes of critical care time spent with this patient, at bedside, on team rounds, addressing the issues as outlined above. Subjective: Patient remains non directable Objective: Vital Signs Temp Pulse Resp BP Pulse Ox 38.2 C 102 H 30 H 124/77 H 99 12/05/16 16:00 12/05/16 16:00 12/05/16 16:00 12/05/16 16:00 12/05/16 16:00 Laboratory Results 12/05/16 06:35 12/05/16 06:35 12/04/16 12/05/16 12/06/16 05:59 05:59 05:59 Intake Total 178 Output Total 650 240 Balance -472 -240 PT 17.0 SEC (12.0-15.0) H 12/05/16 02:30 INR 1.39 (0.83-1.16) H 12/05/16 02:30 - Physical Exam Constitutional: chronically ill appearing, uncomfortable Eyes: other ( dilated pupils, roving, reactive) Ears, Nose, Mouth, Throat: dry mucous membranes Cardiovascular: tachycardia, No systolic murmur, No irregularly irregular, No edema Respiratory: no respiratory distress, no rales or rhonchi, clear to auscultation Gastrointestinal: soft, non-tender abdomen, no palpable masses, No normoactive bowel sounds ( hypoactive bowel sounds), No distension Neurologic: weakness ( paresis of left upper extremity, reflex movement in left lower extremity, upgoing toes and left lower extremity), other ( grasps to palmar reflex, unclear whether this is intentional) Psychiatric: agitated, other ( non directable, does not follow commands) ICD10 Worksheet Patient Problems: Problems Problem Status Onset Left arm weakness Acute Ischemic stroke Acute
[2016-12-06] MEDS: FLUoxetine 10 MG CAP PO SCH ×4 (03:17→21:06)
[2016-12-06] MEDS: NS W/ 20 KCl/L 1,000 ML IV SCH ×2 (03:17→14:20)
[2016-12-06] MEDS: LORazepam 2 MG/ML INJ IVP PRN ×3 (03:17→21:31)
[2016-12-06 04:10] LABS: % IMMATURE GRANULYOCYTES 0.6 % (0.0-1.1); ADD DIFF? NO; ADD MORPH? NO; ADD SCAN? NO; ATYPICAL LYMPHOCYTE FLAG 0 (0-99); FRAGMENT RBC FLAG 0 (0-99); HEMATOCRIT 35.6 % (38.0-47.0); HEMOGLOBIN 11.3 g/dL (12.6-16.3); LEFT SHIFT FLG 0 (0-99); LIPEMIA HEMOLYSIS FLAG 80 (0-99); MEAN CELL HEMOGLOBIN 27.4 pg (27.9-34.1); MEAN CELL HEMOGLOBIN CONCENTR. 31.7 g/dL (32.4-36.7); MEAN CELL VOLUME 86.4 fL (81.5-99.8); PLATELET CLUMPS FLAG 0 (0-99); PLATELET COUNT 99 10^3/uL (150-400); RED BLOOD CELL COUNT 4.12 10^6/uL (4.18-5.33); RED CELL DISTRIBUTION WIDTH 15.3 % (11.5-15.2)
[2016-12-06 04:32] LABS: ALANINE AMINOTRANSFERASE 113 IU/L (9-52); ALBUMIN 2.9 g/dL (3.5-5.0); ALKALINE PHOSPHATASE 676 IU/L (38-126); ANION GAP 10 mEq/L (8-16); ASPARTATE AMINOTRANSFERASE 235 IU/L (14-46); CALCIUM 8.4 mg/dL (8.5-10.4); CARBON DIOXIDE 25 mEq/l (22-31); CHLORIDE 105 mEq/L (97-110); CREATININE 0.6 mg/dL (0.6-1.0); GLOMERULAR FILTRATION RATE > 60; GLUCOSE 104 mg/dL (70-100); POTASSIUM 3.9 mEq/L (3.5-5.2); SODIUM 140 mEq/L (134-144); TOTAL PROTEIN 5.6 g/dL (6.3-8.2)
[2016-12-06] MEDS: HEPARIN 10,000 UNIT/10 ML MDV IVP PRN ×2 (05:00→17:41)
[2016-12-06] MEDS: HALOPERIDOL LACT 5 MG/ML INJ IVP PRN ×2 (05:56→18:04)
--- NOTE | 2016-12-06 06:49 | CPEEG ---
[f rep st] ELECTROENCEPHALOGRAM DATE OF STUDY: HISTORY: The patient is a 61-year-old woman whom I am seeing in neurologic consultation after she c amanda to the hospital yesterday for multiple small areas of presumed embolic infarctions with predomin antly left side weakness and has had 2 generalized seizures 12 hours ago which have resolved after g oing on Keppra. She does not have a known history of seizure disorder. She has had relative lethar gy over the last 12 hours, although she has received some sedation. INDICATION: Evaluate for seizure and epileptiform activity and focal findings. FINDINGS: This is a technically limited study because of impedance challenges, electrode artifact, and a lot of movement by the patient. However, there are several epochs of interpretable EEG in [facility] I do not see any evidence of electrographic seizure or nonconvulsive seizure phenomena. She does have some relative slowing over the right hemisphere in the theta range predominantly compared to t he left, although there is rare delta slowing of low amplitude from the right hemisphere. The other background rhythms consist of a mixture of alpha, theta, and beta activity with more alpha frequenc y in the 10-11 Hz in the left hemisphere, but often right hemisphere, as well. INTERPRETATION: This is an abnormal EEG due to the presence of some generalized slowing, but also s ome focal slowing over the right hemisphere which would suggest underlying structural pathology and likely correlates with areas of ischemia that explain some of the left-sided weakness. There is not evidence of electrographic seizure or anything more specific to explain the altered mental state. /[id number]/MODL
--- NOTE | 2016-12-06 08:21 | ECHO ---
[id number] + + [address] : : [place] [address] : : [phone] + + Adult Echocardiographic Report + -----+ :Name: JEREMY MATHIAS LStudy Date: 12/05/2016 09:05 AM BP: 137/98 mmHg : : Hospital Admission Number: [id number] Location : 244: :: 1955 Gender: Female Height: 62 in : :Age: 61 yrs Race: WH Weight: 103 lb : :Reason For Study: source of emboli and r/o shunt : : BSA: 1.4 meters2 : :History: ischemic stroke : + -----+ MMode/2D Measurements \T\ Calculations IVSd: 0.71 cm RVDd: 2.0 cm FS: 34.9 % Ao root diam: LVPWd: 0.71 cm LVIDd: 4.0 cm EDV(Teich): 2.8 cm LVIDs: 2.6 cm 71.0 ml ESV(Teich): 25.1 ml EF(Teich): 64.7 % LVLd ap4: 7.4 cm SV(MOD-sp4): EDV(MOD-sp4): 56.0 ml 92.0 ml LVLs ap4: 6.9 cm ESV(MOD-sp4): 36.0 ml EF(MOD-sp4): 60.9 % Normal Measurement Values: + + :LVIDd (3.5-5.7cm) IVSd (0.6-1.1cm) LVPWd (0.6-1.1cm) Aortic Root (2.0-3.7cm)Left Atrium (1.5-4.0cm): :LV Vol(d) (76-115ml) LV Vol(s) (29-48ml) Ejec Fraction (50-65%)PV Doug (0.6- 1.2m/s) TV Doug (0.4-1.0m/s) : :MV E Doug (0.8-1.0m/s)MV A Doug (0.3-1.0m/s)LVOT Doug (0.7-1.2m/s) Asc Ao Doug ( 0.9-1.8m/s) : + + Doppler Measurements \T\ Calculations MV E max doug: Ao V2 max: LV V1 max: PA V2 max: 123.4 cm/sec 122.7 cm/sec 99.2 cm/sec 95.0 cm/sec MV A max doug: Ao max P.0 mmHgLV V1 max PG: PA max P.6 cm/sec 3.9 mmHg 3.6 mmHg MV E/A: 1.1 MV dec time: 0.23 sec TR max doug: 305.1 cm/sec TR max P.2 mmHg RAP systole: 10.0 mmHg RVSP(TR): 47.2 mmHg Left Ventricle The left ventricle is normal in size and function. There is no thrombus. There is normal left ventricular wall thickness. Left ventricular systolic function is normal. Ejection Fraction = 60-65%. The left ventricular ejection fraction is calculated at 64.7 %. There is Doppler evidence for diastolic dysfunction. No regional wall motion abnormalities noted. Right Ventricle The right ventricle is normal in size and function. Atria The left atrial size is normal. Right atrial size is normal. Injection of contrast documented no interatrial shunt. Mitral Valve The mitral valve leaflets appear thickened, but open well. There is mild to moderate mitral regurgitation. Tricuspid Valve The tricuspid valve is normal in structure and function. There is mild tricuspid regurgitation. Right ventricular systolic pressure is 47mmHg. There is Doppler evidence for moderate pulmonary hypertension. Aortic Valve The aortic valve is trileaflet. There is no aortic stenosis. There is no aortic insufficiency. Pulmonic Valve The pulmonic valve is normal in structure and function. Great Vessels The aortic root is not well visualized. Pericardium/Pleural There is no pericardial effusion. Conclusion A two-dimensional transthoracic echocardiogram with M-mode and Doppler was performed. Agitated saline used to rule out cardiac shunt. .165mg of Definity used to rule out apical clot. (1) Left ventricular systolic ejection fraction was normal (60-65%) - normal wall motion (2) No left ventricular hypertrophy (3) Diastolic dysfunction was present (4) Normal right ventricular size and function (5) Normal atrial dimensions - bubble contrast injection without right to left passage noted (6) Mild to moderate mitral regurgitation (7) Trileaflet aortic valve with without sclerosis or insufficiency (8) Mild tricuspid regurgitation - RVSP was estimated to be 45-50 mm Hg (9) Poor visualization of the pulmonic valve (10) No comparison echocardiograms Final Reading Physician: Myrtle Lee signed on 12/06/2016 08:20 AM Ordering Physician: Akosua Willson Performed By: Armida Cali
--- NOTE | 2016-12-06 08:44 | NEUROPROG ---
Assessment: The patient has areas of stroke throughout supratentorial and infratentorial regions bilaterally but the most obvious deficits are combination of lethargy and left sondra paresis which is more evident today than yesterday. The imaging did not show any hemorrhage. The logical explanation of a paradoxical embolic phenomenon seems unlikely now given the lack of evidence on the transthoracic echocardiogram of a PFO. There is no other obvious source for emboli at this point and I would continue argues against a diffuse vasculitis as the cause for this, although I am not sure why she is experiencing the problem. We should continue the anticoagulation as she does have a history of DVT. The NIH stroke scale is currently 10. A total of 25 minutes of unit time was spent. Subjective: The patient tells me this morning with very slurred speech that she is not having pain. She is able to express very little about her condition and I am mostly dependent on simple responses but not clearly reliable at this stage. I spoke to her nurse says she has been variably following commands and sometimes agitated to the point of needing a little bit of Haldol which usually helps. It has been evident that her left side is definitely weaker than the right. Objective: Vital Signs Temp Pulse Resp BP Pulse Ox 37.8 C 83 24 H 113/83 H 94 12/06/16 06:00 12/06/16 06:00 12/06/16 06:00 12/06/16 06:00 12/06/16 06:00 Laboratory Results 12/06/16 03:25 12/06/16 03:25 12/05/16 12/06/16 12/07/16 05:59 05:59 05:59 Intake Total 178 2272 Output Total 650 890 Balance -472 1382 PT 17.0 SEC (12.0-15.0) H 12/05/16 02:30 INR 1.39 (0.83-1.16) H 12/05/16 02:30 She is lethargic but awake and keeps her eyes closed. She does not open her eyes very effectively and can only keep them open briefly when I helped her open them. She does attempt to answer some questions and was able to consistently follow commands on the right side. She again is rather confused and cannot elaborate on any aspects of her current condition and is not spontaneously asking any questions. No clinical seizure activity has been seen. On her exam now, she has left lower facial weakness as well as her left upper extremity weakness in the 2/5 range and similar in the left lower extremity but somewhat difficult to say for sure how strong she might be. There is some spontaneous clonus on the left and left Babinski sign. Her echocardiogram did not show a clear embolic source. There was no evident PFO or atrial septal defect. Allergies/Adverse Reactions: No Known Allergies Allergy (Verified 12/03/16 16:54)
[2016-12-06] MEDS: levETIRAcetam 500 MG in NS 100 ML IV SCH ×2 (08:57→20:55)
--- NOTE | 2016-12-06 09:33 | PDINTPN ---
[facility] Progress Note Assessment/Plan: Assessment/Plan: * Acute cerebral vascular accident -continue heparin drip -per Neurology * Seizure-EEG negative * Encephalopathy-a little improved today * Hypertension-well controlled * Elevated liver function tests * Nutrition-none currently. Awaiting speech * PT/OT Subjective: Poorly arousable. Improved per nursing Objective: Vital Signs Temp Pulse Resp BP Pulse Ox 37.7 C 86 24 H 126/70 H 96 12/06/16 08:00 12/06/16 08:00 12/06/16 08:00 12/06/16 08:00 12/06/16 08:00 Laboratory Results 12/06/16 03:25 12/06/16 03:25 12/05/16 12/06/16 12/07/16 05:59 05:59 05:59 Intake Total 178 2272 Output Total 650 890 Balance -472 1382 PT 17.0 SEC (12.0-15.0) H 12/05/16 02:30 INR 1.39 (0.83-1.16) H 12/05/16 02:30 Laboratory Results 12/06/16 03:25 12/06/16 03:25 12/06/16 03:25 Calcium 8.4 mg/dL L mg/dL (8.5 - 10.4) Total Bilirubin 1.0 mg/dL mg/dL (0.1 - 1.4) AST 235 IU/L H IU/L (14 - 46) ALT 113 IU/L H IU/L (9 - 52) Alkaline Phosphatase 676 IU/L H IU/L (38 - 126) Total Protein 5.6 g/dL L g/dL (6.3 - 8.2) Albumin 2.9 g/dL L g/dL (3.5 - 5.0) Physical Exam - Physical Exam General Appearance: unresponsive, No alert EENT: PERRL/EOMI Neck: non-tender, full range of motion, supple, normal inspection Respiratory: chest non-tender, lungs clear, normal breath sounds Cardiac/Chest: normal peripheral pulses, regular rate, rhythm Abdomen: normal bowel sounds, non-tender, soft Pelvic Exam: deferred Rectal: deferred Skin: normal color, warm/dry Neuro/Psych: No alert ICD10 Worksheet Patient Problems: Problems Problem Status Onset Ischemic stroke Acute Left arm weakness Acute
[2016-12-06] MEDS: HEPARIN/DEXTROSE 500 ML IV SCH (11:43)
[2016-12-06] MEDS: AMPICILLIN/SULBACTAM 3 GM in NS 100 ML IV SCH ×3 (13:01→23:50)
[2016-12-06 13:47] LABS: DILUTE RUSSELLS VIPER VENOM 1.1 ratio (0.0 - 1.1); INR 1.2; INTERPRETATION See Comments; PT 13.4 sec; PTT 30 sec (26 - 36)
[2016-12-06 14:32] LABS: ANTITHROMBIN 3 ANTIGEN 70 % (80 - 120)
--- NOTE | 2016-12-06 17:19 | HOSPPROG ---
Hospitalist Progress Note Assessment/Plan: assessment: 61-year-old female presents with acute multifocal cerebrovascular accident Plan: 1. cerebrovascular accident. Acute, multifocal, suspected embolic source, unclear whether this is from her lower extremity DVT or cardiac in origin -there does not appear to be PF0 and his interpretation of the MRI is that these are most likely emboli and not small vessel ischemic infarcts -will continue on heparin drip given that the likely sources embolic -LDL 210, placed on high dose statin -ongoing neurology consultation appreciated -physical and occupational therapy once able -beginning to have signs of neuro recovery, still has dense LUE paralysis 2. Encephalopathy. Acute, improving, following commands 3. seizure. Acute, Secondary to CVA, occurred overnight, loaded with Keppra, does not appear to be in active status on EEG 4. Hyponatremia. Acute, most likely secondary to poor fluid intake in the setting of above, received normal saline, resolved 5. Transaminitis. Acute worsening, new problem, further w/u. Brother denies EtOH use, may be 2/2 liver infarcts -will get liver ultrasound -get hepatitis panel 6. high blood pressure. Unclear chronicity, currently permissive hypertension 7. aspiration pneumonia. Acute, new problem, further w/u. Evidenced by L side infiltrate on CXR (personally interpreted) + worsening leukocytosis, high risk aspiration given CVA -start unasyn -get sputum Cx -monitor CBC/fever curve Diet. NPO, [employer] eval Prophylaxis. High risk patient, currently on systemic anticoagulation Code. Full, patient's brother is by default her MD MORAN, she has never assigned specific proxy now has not discussed code status with any family members Disposition. Anticipated discharge uncertain this time high-level medical complexity, remains high risk for worsening morbidity and/ or mortality, Secondary to the issues outlined above. Subjective: Patient is more directable Objective: Vital Signs Temp Pulse Resp BP Pulse Ox 36.8 C 96 20 123/76 H 93 12/06/16 15:34 12/06/16 15:34 12/06/16 15:34 12/06/16 15:34 12/06/16 15:34 Laboratory Results 12/06/16 03:25 12/06/16 03:25 12/05/16 12/06/16 12/07/16 05:59 05:59 05:59 Intake Total 178 2272 Output Total 650 890 150 Balance -472 1382 -150 PT 13.4 sec H 12/05/16 06:35 INR 1.2 12/05/16 06:35 - Physical Exam Constitutional: not in pain, chronically ill appearing, cachectic, No uncomfortable Eyes: PERRL, anicteric sclera, EOMI, No scleral injection Ears, Nose, Mouth, Throat: moist mucous membranes Cardiovascular: systolic murmur ( 2/6 at the sternum and apex), No irregularly irregular, No tachycardia, No edema Respiratory: rhonchi ( on left), No expiratory wheeze, No bronchial breath sounds, No respiratory distress Gastrointestinal: normoactive bowel sounds, soft, non-tender abdomen, no palpable masses, No distension Musculoskeletal: other ( proximal muscle wasting) Neurologic: weakness ( left upper extremity paralysis), facial droop ( left mouth), other ( alert awake oriented x2 to person and place, not to time) Psychiatric: poor memory, other ( minimally verbally interactive) ICD10 Worksheet Patient Problems: Problems Problem Status Onset Ischemic stroke Acute Left arm weakness Acute
[2016-12-07] MEDS: HEPARIN 10,000 UNIT/10 ML MDV IVP PRN ×3 (00:46→12:34)
[2016-12-07] MEDS: HALOPERIDOL LACT 5 MG/ML INJ IVP PRN (00:46)
[2016-12-07] MEDS ORDERED: FUROSEMIDE 40 MG/4 ML VIAL IVP ONE (03:00)
[2016-12-07] MEDS ORDERED: 1/2 NS 1,000 ML IV SCH (04:45)
[2016-12-07] MEDS: MEROPENEM 1 GM in NS 100 ML IV SCH ×3 (05:01→23:13)
--- NOTE | 2016-12-07 05:16 | HOSPPROG ---
Hospitalist Progress Note Assessment/Plan: Called to see patient for worsening respiratory status. She had been stable on 2L. Sats dropped to 84% on 5L. BP good, tachycardiac 100-110, sats 84% on 5L mask, RR 28 Patient sleeping, not easily aroused. Lungs - extensive bilateral crackles, no wheeze CVS RRR, no murmur Abd - soft, NT Ext - no edema A/P: 1. Acute respiratory failure - CXR shows worsening infiltrate. Initially I though there may be an element of pulmonary edema. 40mg IV lasix given. This did not improve her saturations. Broaden antibiotics to IV meropenum. Transfer back to SDU for closer monitoring. 2. Stroke - On IV heparin for possible embolic source. She also has history of recent DVT. 3. Suspected hepatic mets - check CT abd/pelvis. Will also check CT chest to look for primary. This might also give us some useful information regarding current acute respiratory failure. CC time : 45 minutes Objective: Vital Signs Temp Pulse Resp BP Pulse Ox 36.9 C 99 16 135/85 H 90 L 12/07/16 03:38 12/07/16 03:38 12/07/16 03:38 12/07/16 03:38 12/07/16 03:38 Laboratory Results 12/06/16 03:25 12/06/16 03:25 12/05/16 12/06/16 12/07/16 05:59 05:59 05:59 Intake Total 178 2272 690 Output Total 650 890 800 Balance -472 1382 -110 PT 13.4 sec H 12/05/16 06:35 INR 1.2 12/05/16 06:35 ICD10 Worksheet Patient Problems: Problems Problem Status Onset Ischemic stroke Acute Left arm weakness Acute
[2016-12-07 05:36] LABS: % IMMATURE GRANULYOCYTES 0.6 % (0.0-1.1); ABSOLUTE IMMATURE GRANULOCYTES 0.11 10^3/uL (0.00-0.10); ADD DIFF? NO; ADD MORPH? NO; ADD SCAN? NO; ATYPICAL LYMPHOCYTE FLAG 0 (0-99); FRAGMENT RBC FLAG 0 (0-99); HEMATOCRIT 34.9 % (38.0-47.0); HEMOGLOBIN 11.3 g/dL (12.6-16.3); LEFT SHIFT FLG 0 (0-99); LIPEMIA HEMOLYSIS FLAG 80 (0-99); MEAN CELL HEMOGLOBIN 27.4 pg (27.9-34.1); MEAN CELL HEMOGLOBIN CONCENTR. 32.4 g/dL (32.4-36.7); MEAN CELL VOLUME 84.5 fL (81.5-99.8); MEAN PLATELET VOLUME 10.8 fL (8.7-11.7); PLATELET CLUMPS FLAG 0 (0-99); PLATELET COUNT 114 10^3/uL (150-400); RED BLOOD CELL COUNT 4.13 10^6/uL (4.18-5.33); RED CELL DISTRIBUTION WIDTH 15.9 % (11.5-15.2)
[2016-12-07 05:57] LABS: ALANINE AMINOTRANSFERASE 101 IU/L (9-52); ALBUMIN 3.1 g/dL (3.5-5.0); ALKALINE PHOSPHATASE 604 IU/L (38-126); ANION GAP 12 mEq/L (8-16); ASPARTATE AMINOTRANSFERASE 161 IU/L (14-46); BILIRUBIN,TOTAL 1.1 mg/dL (0.1-1.4); CALCIUM 8.4 mg/dL (8.5-10.4); CARBON DIOXIDE 27 mEq/l (22-31); CHLORIDE 107 mEq/L (97-110); CREATININE 0.6 mg/dL (0.6-1.0); GLOMERULAR FILTRATION RATE > 60; GLUCOSE 108 mg/dL (70-100); POTASSIUM 3.1 mEq/L (3.5-5.2); SODIUM 146 mEq/L (134-144)
[2016-12-07] MEDS: FLUoxetine 10 MG CAP PO SCH ×4 (06:33→23:12)
[2016-12-07] MEDS ORDERED: FUROSEMIDE 20 MG/2 ML VIAL IVP ONE ×2 (07:00→14:51)
[2016-12-07] MEDS ORDERED: PROTOCOL POTASSIUM 1 DOSE MISC PRN (07:05)
[2016-12-07] MEDS: ATORVASTATIN CALCIUM 40 MG TAB PO SCH (07:06)
[2016-12-07] MEDS ORDERED: D5W 1,000 ML IV SCH (07:15)
[2016-12-07] MEDS: levETIRAcetam 500 MG in NS 100 ML IV SCH ×2 (08:15→22:30)
[2016-12-07] MEDS: POTASSIUM Cl (KCl) 100 ML IV SCH ×4 (08:15→14:30)
--- NOTE | 2016-12-07 09:34 | NEUROPROG ---
Assessment: The patient has areas of stroke throughout supratentorial and infratentorial regions bilaterally but the most obvious deficits are combination of lethargy and left sondra paresis which is more evident today than yesterday. The imaging did not show any hemorrhage. The logical explanation of a paradoxical embolic phenomenon seems unlikely now given the lack of evidence on the transthoracic echocardiogram of a PFO. There is no other obvious source for emboli at this point and I would continue argues against a diffuse vasculitis as the cause for this, although I am not sure why she is experiencing the problem. We should continue the anticoagulation as she does have a history of DVT. The NIH stroke scale is currently 10. A total of 25 minutes of unit time was spent. 12/07/16 Strokes with severe left side weakness and moderate encephalopathy. Stable but still quite ill and poor prognosis for recovery given the current deficits. 25 minutes total unit time. Subjective: Pt about the same today. She went to floor and came back with higher O2 needs. Objective: Vital Signs Temp Pulse Resp BP Pulse Ox 37.5 C 97 30 H 133/76 H 3 L 12/07/16 08:00 12/07/16 08:00 12/07/16 08:00 12/07/16 08:00 12/07/16 08:00 Laboratory Results 12/07/16 05:20 12/07/16 05:20 12/06/16 12/07/16 12/08/16 05:59 05:59 05:59 Intake Total 2272 690 Output Total 890 800 Balance 1382 -110 PT 13.4 sec H 12/05/16 06:35 INR 1.2 12/05/16 06:35 Lethargic but able to speak with dysarthria to a limited degree and follows simple commands and moves right side to commands. Dense left hemiparesis persists. Allergies/Adverse Reactions: No Known Allergies Allergy (Verified 12/03/16 16:54)
[2016-12-07] MEDS ORDERED: IOPAMIDOL (ISOVUE-300) 100 ML BTL ONE (11:01)
--- NOTE | 2016-12-07 12:21 | PDPCPN ---
Palliative Care Progress Note Assessment/Plan: Referring provider: Dr Mauricio Reason for consult: Complex medical decision making Symptom control HPI: Stas rubio is a 61 yo female admitted to the hospital with fall and left sided weakness. Found to have CVA. Hospitalization complicated by seizures, AMS , and resp distress. Being treated for possible aspiration PNA. Also new findings of liver mets on u/s of liver. Palliative care consulted for complex medical decision making. Spoke with Hank and Karina at the bedside today. We discussed the goal of palliative care is to support someone with a chronic serious medical condition. Discussed a little about Stas and what means quality of life to her. They said Stas has always been a very independent, active person who would never want to be in a vegetative state. They have experience with hospice care from their parents and believe Stas would want comfort with her new dx of likely metastatic cancer. They are hoping she might wake up a bit to discuss this more with them and be able to give her say. She was a very active person always walking or riding her bike, living on her own and do not feel she would want to be dependent on anyone. Also started discussion of code status and both agree Stas would not want CPR knowing it would cause more harm than good. Assessment: Physical: - Pain: appears comfortable - tylenol PRN - reposition as needed - Dyspnea: improving - on antibiotics and lasix - oxygen as needed - a fan can sometimes help dyspnea - poor appetite - ongoing prior to admission - speech eval when able Emotional/psychological: Hx of depression and anxiety: continue prozac as able - haldol PRN for agitation Advanced Care Planning: Is patient decisional?: No Code Status: Full MD POA: Her brother Hank is serving as proxy. Sister in [place] also close to her. Plan: Palliative care to follow. Subjective: mumbles some words. Objective: Social History: Never . Has 3 siblings all involved and 2 local. 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 An artistic person who enjoys drawing and painting. Also enjoys going for walks and biking. Medication list reviewed ROS: General: fatigue, weakness, weight loss ENT: dry mouth Resp: negative GI: poor appetite : negative MS: negative Skin: negative Neuro: left sided weakness Psych: restless, confused Functional assessment: PPS: 40% Functional status: dependent on ADLs, IADLs Vital Signs Temp Pulse Resp BP Pulse Ox 36.9 C 91 28 H 118/85 H 94 12/07/16 11:30 12/07/16 11:30 12/07/16 11:30 12/07/16 11:30 12/07/16 11:30 Laboratory Results 12/07/16 05:20 12/07/16 05:20 12/06/16 12/07/16 12/08/16 05:59 05:59 05:59 Intake Total 2272 690 Output Total 717 142 4404 Balance 1382 -110 -1000 PT 13.4 sec H 12/05/16 06:35 INR 1.2 12/05/16 06:35 Physical Exam - Physical Exam General Appearance: no apparent distress, other (fatigued) Respiratory: No respiratory distress, No accessory muscle use Skin: normal color, warm/dry Extremities: No pedal edema Neuro/Psych: other (very lethargic) ICD10 Worksheet Patient Problems: Problems Problem Status Onset Ischemic stroke Acute Left arm weakness Acute Palliative care encounter Acute - ICD10 Problem Qualifiers (1) Palliative care encounter
--- NOTE | 2016-12-07 14:07 | PDINTPN ---
[facility] Progress Note Assessment/Plan: Assessment/Plan: * Acute cerebral vascular accident -continue heparin drip -per Neurology * Likely metastatic cancer-source unknown at this time. Mets to liver seen on ultrasound * Seizure-EEG negative * Encephalopathy-a little improved today * Hypertension-well controlled * Elevated liver function tests * Nutrition-none currently. Awaiting speech * PT/OT Subjective: Nonverbal but awake Objective: Vital Signs Temp Pulse Resp BP Pulse Ox 36.9 C 91 28 H 118/85 H 94 12/07/16 11:30 12/07/16 11:30 12/07/16 11:30 12/07/16 11:30 12/07/16 11:30 Laboratory Results 12/07/16 05:20 12/07/16 05:20 12/06/16 12/07/16 12/08/16 05:59 05:59 05:59 Intake Total 2272 690 Output Total 535 826 3691 Balance 1382 -110 -1000 PT 13.4 sec H 12/05/16 06:35 INR 1.2 12/05/16 06:35 Physical Exam - Physical Exam General Appearance: other (Awake), No alert EENT: PERRL/EOMI, normal ENT inspection Neck: non-tender, full range of motion, supple, normal inspection Respiratory: chest non-tender, lungs clear, normal breath sounds Cardiac/Chest: normal peripheral pulses, regular rate, rhythm Peripheral Pulses: 2+: carotid (R), carotid (L), femoral (R), femoral (L), dorsalis-pedis (R), dorsalis-pedis (L) Abdomen: normal bowel sounds, non-tender, soft Pelvic Exam: deferred Rectal: deferred Skin: normal color, warm/dry ICD10 Worksheet Patient Problems: Problems Problem Status Onset Ischemic stroke Acute Left arm weakness Acute Palliative care encounter Acute
--- NOTE | 2016-12-07 15:08 | HOSPPROG ---
Hospitalist Progress Note Assessment/Plan: assessment: 61-year-old female presents with acute multifocal cerebrovascular accident c/b new diagnosis metastatic malignancy of unknown primary, aspiration pneumonia, acute hypoxic resp failure, acute diastolic CHF, acute pulmonary embolism Plan: 1. Cerebrovascular accident. Acute, multifocal, suspected embolic source, unclear whether this is from her lower extremity DVT or cardiac in origin vs. 2/ 2 hypercoagulable state w/ malignancy -there does not appear to be PF0 and his interpretation of the MRI is that these are most likely emboli and not small vessel ischemic infarcts -will continue on heparin drip given that the likely sources embolic -LDL 210, placed on high dose statin -ongoing neurology consultation appreciated -physical and occupational therapy once able -ongoing dense RUE paralysis, unable to open eyes, able to coherently verbally respond -counseled family that her most immediate quality of life limitation is going to be CVA recovery, so, outside of our conversations regarding her metastatic malignancy, we need to determine whether Stas wants purely supportive/comfort care due to the severe nature of her CVA vs. more aggressive supportive/therapy -we determined that making this big decision (and the sister/brother agree that patient would most likely prefer a home hospice/comfort course if she is unable to resume meaningful function) will hinge on whether we see more robust recovery over the next 24-48hrs after starting nutritional support via NGT 2. Encephalopathy. Acute, improving, following commands, verbally responsive but lethargic 3. Seizure. Acute, Secondary to CVA, loaded with Keppra, does not appear to be in active status on EEG 4. Hyponatremia. Acute, most likely secondary to poor fluid intake in the setting of above, received normal saline, resolved 5. Transaminitis. 2/2 metastatic malignancy to liver 6. High blood pressure. Unclear chronicity, currently permissive hypertension 7. Aspiration pneumonia. Acute worsening o/n w/ degree of vol overload, broadened to Meropenem given rapid decline and concern for Pseudomonas -cont on Meropenem -cont monitor CBC/fever curve 8. Acute hypoxic respiratory failure. Patient notably in obvious resp distress o /n w/ tachypnea, hypoxia on 5L NC, requiring face mask o2 for stabilization and transferred back to ICU, 2/2 acute diastolic CHF and worsening PNA -stabilized and weaned o/n, remains high risk of worsening 9. Pulmonary embolism. Suspect it was POA, patient w/ untreated DVT as outpt and presented tachycardic w/ CVA, placed on hep gtt, PE likely occurred prior to hospitalization and NOT during b/c she's been on anticoagulation during her stay -cont hep gtt -RML, counseled family about need for ongoing anticoagulation 10. Metastatic Malignancy. New diagnosis, liver mets, unclear primary, patient has stage IV disease by definition -CT chest/abd/pelvis w/o obvious source, suspect either breast of colon (father of metastatic colon cancer to liver) -counseled patient and family regarding poor prognosis, life expectancy months if she had not had all of the above complications, but at this time, would anticipate ongoing complications throughout the rest of her life, rendering poor quality, and would recommend considering hospice support (either at SNF vs. home) -sister believes patient would want to go home, patient voiced confirmation of this -getting palliative consultation to help facilitate hospice eval and determination whether patient can be supported at home Diet. NPO, NGT placement w/ TF Prophylaxis. High risk patient, currently on systemic anticoagulation Code. Full, patient's brother is by default her MD MORAN, she has never assigned specific proxy now has not discussed code status with any family members Disposition. Anticipated discharge uncertain this time 65 minutes of critical care time spent with this patient, with her family, at bedside, addressing the issues as outlined above, patient remains critically ill with high risk of mortality. Subjective: patient remains restless but no pain, thirsty, wants to go home Objective: Vital Signs Temp Pulse Resp BP Pulse Ox 36.9 C 91 28 H 118/85 H 94 12/07/16 11:30 12/07/16 11:30 12/07/16 11:30 12/07/16 11:30 12/07/16 11:30 Laboratory Results 12/07/16 05:20 12/07/16 05:20 12/06/16 12/07/16 12/08/16 05:59 05:59 05:59 Intake Total 2272 690 Output Total 103 665 7567 Balance 1382 -110 -1000 PT 13.4 sec H 12/05/16 06:35 INR 1.2 12/05/16 06:35 - Physical Exam Constitutional: chronically ill appearing, uncomfortable, cachectic, No no apparent distress (restless) Eyes: PERRL, anicteric sclera Ears, Nose, Mouth, Throat: dry mucous membranes Cardiovascular: No systolic murmur, No irregularly irregular, No tachycardia, No edema Respiratory: reduced air movement (Left), rhonchi (Left), No expiratory wheeze, No bronchial breath sounds Gastrointestinal: No normoactive bowel sounds (hypoactive), No tenderness Neurologic: weakness (LUE paralysis), facial droop (Left), other (AAOX2 (person and place)) Psychiatric: other (lethargic, responds appropriately to verbal questions) ICD10 Worksheet Patient Problems: Problems Problem Status Onset Left arm weakness Acute Ischemic stroke Acute Palliative care encounter Acute
[2016-12-07 15:18] LABS: INTERPRETATION See Comments
--- NOTE | 2016-12-07 16:55 | ASMTCMCOM ---
CM Note CM Note Notes: Patient was diagnosed today with metastaitc malignancy. Patient's brother and sister expressed to Chaplain Rhea they do not feel they can take care of her at home. Patient and siblings are amenable to Hospice Care and Snf placement. [facility], [facility], and [facility] were given to them to research. Contacted [facility] and left a message as they are not answering their phone. Patient and siblings would like to talk to Hospice tomorrow if possible. As I have not heard back from them, this may need to be set up tomorrow. [facility] is the families choice as they used them for their mother. Spoke with patient's siblings and let them know [facility] was not answering their phone and the CM will need to f/u tomorrow on Saturday to see if they can set something up for late afternoon. They will research SNF facilities and let us know their preferences. CM will follow. Date Signed: 12/07/2016 04:32 PM Electronically Signed By:Jillian Gross
[2016-12-07] MEDS: HEPARIN/DEXTROSE 500 ML IV SCH (17:07)
[2016-12-07] MEDS ORDERED: POTASSIUM Cl (KCl) 100 ML IV SCH (19:40)
[2016-12-07] MEDS ORDERED: POTASSIUM CL 20 MEQ/15 ML UDCUP PO ONE (20:15)
[2016-12-07] MEDS: LORazepam 2 MG/ML INJ IVP PRN (22:02)
[2016-12-08] MEDS: HEPARIN 10,000 UNIT/10 ML MDV IVP PRN (01:04)
[2016-12-08] MEDS: MEROPENEM 1 GM in NS 100 ML IV SCH ×3 (05:29→22:00)
[2016-12-08 05:41] LABS: % IMMATURE GRANULYOCYTES 0.6 % (0.0-1.1); ABSOLUTE IMMATURE GRANULOCYTES 0.12 10^3/uL (0.00-0.10); ADD DIFF? NO; ADD MORPH? NO; ADD SCAN? NO; ATYPICAL LYMPHOCYTE FLAG 0 (0-99); FRAGMENT RBC FLAG 0 (0-99); HEMATOCRIT 35.1 % (38.0-47.0); HEMOGLOBIN 11.2 g/dL (12.6-16.3); LEFT SHIFT FLG 10 (0-99); LIPEMIA HEMOLYSIS FLAG 80 (0-99); MEAN CELL HEMOGLOBIN 27.2 pg (27.9-34.1); MEAN CELL HEMOGLOBIN CONCENTR. 31.9 g/dL (32.4-36.7); MEAN CELL VOLUME 85.2 fL (81.5-99.8); MEAN PLATELET VOLUME 11.3 fL (8.7-11.7); PLATELET CLUMPS FLAG 10 (0-99); PLATELET COUNT 134 10^3/uL (150-400); RED BLOOD CELL COUNT 4.12 10^6/uL (4.18-5.33)
[2016-12-08 05:57] LABS: SODIUM 144 mEq/L (134-144)
[2016-12-08 05:58] LABS: ALANINE AMINOTRANSFERASE 93 IU/L (9-52); ALKALINE PHOSPHATASE 662 IU/L (38-126); ANION GAP 11 mEq/L (8-16); ASPARTATE AMINOTRANSFERASE 141 IU/L (14-46); CALCIUM 8.5 mg/dL (8.5-10.4); CARBON DIOXIDE 29 mEq/l (22-31); CHLORIDE 104 mEq/L (97-110); CREATININE 0.6 mg/dL (0.6-1.0); GLOMERULAR FILTRATION RATE > 60; GLUCOSE 104 mg/dL (70-100); MAGNESIUM 2.1 mg/dL (1.6-2.3); POTASSIUM 3.5 mEq/L (3.5-5.2); TOTAL PROTEIN 5.6 g/dL (6.3-8.2)
[2016-12-08] MEDS: FLUoxetine 10 MG CAP PO SCH ×4 (06:05→23:13)
[2016-12-08] MEDS: ATORVASTATIN CALCIUM 40 MG TAB PO SCH (08:28)
[2016-12-08] MEDS: levETIRAcetam 500 MG in NS 100 ML IV SCH ×2 (09:48→21:36)
[2016-12-08] MEDS: POTASSIUM Cl (KCl) 100 ML IV SCH ×2 (12:43→15:01)
--- NOTE | 2016-12-08 13:50 | HOSPPROG ---
Hospitalist Progress Note Assessment/Plan: # goals of care - family has requested hospice; RN will page me when family returns so i can personally discuss; hospice eval set for 3p today; i agree that this is appropriate given malignancy and disability from CVA 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; on heparin gtt - lipitor started # acute encephalopathy, nonresponsive - d/t CVA likely; no evidence of status epilepticus on EEG # seizure d/t CVA # malignancy, unknown primary with diffuse hepatic mets - elevated LFTs # htn # acute hypoxic resp failure d/t PE, pna # suspected aspiration pneumonia - on merrem # DVT/PE - on heparin gtt Subjective: no clinical change; family has requested hospice but are not present when I am seeing Ms Springer Objective: Vital Signs Temp Pulse Resp BP Pulse Ox 38.0 C 97 28 H 127/78 H 98 12/08/16 11:29 12/08/16 11:29 12/08/16 11:29 12/08/16 11:29 12/08/16 11:29 Laboratory Results 12/08/16 05:10 12/08/16 05:10 12/07/16 12/08/16 12/09/16 05:59 05:59 05:59 Intake Total 690 1323 Output Total 800 2150 Balance -110 -827 PT 13.4 sec H 12/05/16 06:35 INR 1.2 12/05/16 06:35 - Time Spent With Patient Time Spent with Patient: greater than 35 minutes Time Spent with Patient: Greater than 35 minutes spent on this patients care, greater than 50% of time spent counseling, educating, and coordinating care regarding the above mentioned plan. - Physical Exam Constitutional: other (not responsive) ICD10 Worksheet Patient Problems: Problems Problem Status Onset Left arm weakness Acute Ischemic stroke Acute Palliative care encounter Acute
[2016-12-08] MEDS: HEPARIN/DEXTROSE 500 ML IV SCH (15:05)
--- NOTE | 2016-12-08 16:49 | ASMTCMCOM ---
CM Note CM Note Notes: Verona guzman w [facility] met w pt family today. An RN from [facility] still has to assess, Danette melton [facility] reports they are not able to schedule RN today, she will call CM by 9am Saturday. THis CM stressed they need to come out tomorrow. Date Signed: 12/08/2016 04:48 PM Electronically Signed By:Taty Morrow
[2016-12-09 05:11] LABS: % IMMATURE GRANULYOCYTES 0.7 % (0.0-1.1); ABSOLUTE IMMATURE GRANULOCYTES 0.11 10^3/uL (0.00-0.10); ADD DIFF? NO; ADD MORPH? NO; ADD SCAN? NO; ATYPICAL LYMPHOCYTE FLAG 0 (0-99); FRAGMENT RBC FLAG 0 (0-99); HEMATOCRIT 33.8 % (38.0-47.0); HEMOGLOBIN 10.6 g/dL (12.6-16.3); LEFT SHIFT FLG 0 (0-99); LIPEMIA HEMOLYSIS FLAG 80 (0-99); MEAN CELL HEMOGLOBIN 27.2 pg (27.9-34.1); MEAN CELL HEMOGLOBIN CONCENTR. 31.4 g/dL (32.4-36.7); MEAN CELL VOLUME 86.9 fL (81.5-99.8); MEAN PLATELET VOLUME 10.9 fL (8.7-11.7); PLATELET CLUMPS FLAG 0 (0-99); PLATELET COUNT 131 10^3/uL (150-400); RED BLOOD CELL COUNT 3.89 10^6/uL (4.18-5.33)
[2016-12-09] MEDS: MEROPENEM 1 GM in NS 100 ML IV SCH ×3 (05:16→21:59)
[2016-12-09] MEDS: FLUoxetine 10 MG CAP PO SCH ×4 (05:32→20:10)
[2016-12-09 05:42] LABS: ANION GAP 6 mEq/L (8-16); CALCIUM 8.7 mg/dL (8.5-10.4); CARBON DIOXIDE 31 mEq/l (22-31); CHLORIDE 107 mEq/L (97-110); CREATININE 0.6 mg/dL (0.6-1.0); GLOMERULAR FILTRATION RATE > 60; GLUCOSE 98 mg/dL (70-100); MAGNESIUM 2.3 mg/dL (1.6-2.3); POTASSIUM 3.2 mEq/L (3.5-5.2); SODIUM 144 mEq/L (134-144)
[2016-12-09] MEDS: ATORVASTATIN CALCIUM 40 MG TAB PO SCH (09:01)
[2016-12-09] MEDS: levETIRAcetam 500 MG in NS 100 ML IV SCH ×2 (10:03→20:10)
[2016-12-09] MEDS: HEPARIN/DEXTROSE 500 ML IV SCH (12:32)
--- NOTE | 2016-12-09 12:51 | HOSPPROG ---
Hospitalist Progress Note Assessment/Plan: # goals of care - overall, she has improved since yesterday; family still wants to proceed with hospice and not workup her malignancy further; if she continues to improve, she will have a voice in her care soon. will keep current therapies going for now. 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; on heparin gtt - lipitor started # acute encephalopathy - improved today - AOx2 # seizure d/t CVA - on keppra # dysphagia - [employer] eval today, advance diet; family clear she would not want a PEG # malignancy, unknown primary with diffuse hepatic mets - she has possible renal masses on CT # htn # acute hypoxic resp failure d/t PE, pna # suspected aspiration pneumonia - on merrem # DVT/PE - on heparin gtt Subjective: discussed plan of care with family extensively Objective: Vital Signs Temp Pulse Resp BP Pulse Ox 36.9 C 91 31 H 128/77 H 95 12/09/16 00:00 12/09/16 08:00 12/09/16 08:00 12/09/16 08:00 12/09/16 08:00 Laboratory Results 12/09/16 05:01 12/09/16 05:01 12/08/16 12/09/16 12/10/16 05:59 05:59 05:59 Intake Total 1323 881.6 Output Total 2150 1900 Balance -827 -1018.4 PT 13.4 sec H 12/05/16 06:35 INR 1.2 12/05/16 06:35 - Time Spent With Patient Time Spent with Patient: greater than 35 minutes Time Spent with Patient: Greater than 35 minutes spent on this patients care, greater than 50% of time spent counseling, educating, and coordinating care regarding the above mentioned plan. - Physical Exam Constitutional: no apparent distress Neurologic: other (L arm hemiparesis; moving L leg; AOx2) ICD10 Worksheet Patient Problems: Problems Problem Status Onset Left arm weakness Acute Ischemic stroke Acute Palliative care encounter Acute
[2016-12-09] MEDS: NS 1,000 ML IV SCH (13:30)
[2016-12-09] MEDS: ACETAMINOPHEN 325 MG TAB PO PRN ×2 (14:06→20:10)
[2016-12-09] MEDS: oxyCODONE IR 5 MG TAB PO PRN (16:09)
--- NOTE | 2016-12-09 17:01 | ASMTCMCOM ---
CM Note CM Note Notes: Brandee from [facility] met with pt and brother Hank today. Pt has new dx of cancer with unknow primary. [facility] has agreed to take pt. Pt does not meet criteria for care center. Brother Hank can no longer care for pt in the home and is looking for a facility where pt can have hospice. Pt will not qualify for LTC medicaid until Hank spends down pt's funds, which he is willing to do. He thinks he has enough for two months at $10,000 per month. Pt's prognosis is unclear. faxed referrals to [facility], [facility], [facility]. and can provide LTC Medicaid beds if pt lives past available funds. [facility] cannot. [facility] is Hank's first choice. C/M to follow. Date Signed: 12/09/2016 05:00 PM Electronically Signed By:Chanel Sanabria
[2016-12-09] MEDS: HALOPERIDOL LACT 5 MG/ML INJ IVP PRN (20:13)
[2016-12-10] MEDS: MEROPENEM 1 GM in NS 100 ML IV SCH ×3 (05:20→21:22)
[2016-12-10] MEDS: oxyCODONE IR 5 MG TAB PO PRN ×2 (05:20→22:55)
[2016-12-10] MEDS: ACETAMINOPHEN 325 MG TAB PO PRN (05:21)
[2016-12-10] MEDS: FLUoxetine 10 MG CAP PO SCH ×4 (05:22→21:22)
[2016-12-10] MEDS: NS 1,000 ML IV SCH (05:30)
[2016-12-10] MEDS ORDERED: NS W/ 20 KCl/L 1,000 ML IV SCH (05:45)
[2016-12-10 08:28] LABS: % IMMATURE GRANULYOCYTES 0.6 % (0.0-1.1); ADD DIFF? NO; ADD MORPH? NO; ADD SCAN? NO; ATYPICAL LYMPHOCYTE FLAG 0 (0-99); FRAGMENT RBC FLAG 0 (0-99); HEMATOCRIT 32.8 % (38.0-47.0); HEMOGLOBIN 10.4 g/dL (12.6-16.3); LEFT SHIFT FLG 0 (0-99); LIPEMIA HEMOLYSIS FLAG 80 (0-99); MEAN CELL HEMOGLOBIN 27.5 pg (27.9-34.1); MEAN CELL HEMOGLOBIN CONCENTR. 31.7 g/dL (32.4-36.7); MEAN CELL VOLUME 86.8 fL (81.5-99.8); MEAN PLATELET VOLUME 10.5 fL (8.7-11.7); PLATELET CLUMPS FLAG 20 (0-99); PLATELET COUNT 126 10^3/uL (150-400); RED BLOOD CELL COUNT 3.78 10^6/uL (4.18-5.33)
[2016-12-10] MEDS: ATORVASTATIN CALCIUM 40 MG TAB PO SCH (08:41)
[2016-12-10] MEDS: HEPARIN 10,000 UNIT/10 ML MDV IVP PRN (09:00)
[2016-12-10 09:05] LABS: ANION GAP 8 mEq/L (8-16); CALCIUM 8.1 mg/dL (8.5-10.4); CARBON DIOXIDE 29 mEq/l (22-31); CHLORIDE 108 mEq/L (97-110); CREATININE 0.5 mg/dL (0.6-1.0); GLOMERULAR FILTRATION RATE > 60; GLUCOSE 92 mg/dL (70-100); SODIUM 145 mEq/L (134-144)
[2016-12-10 09:08] LABS: POTASSIUM 2.7 mEq/L (3.5-5.2)
[2016-12-10] MEDS: levETIRAcetam 500 MG in NS 100 ML IV SCH ×2 (09:08→21:24)
[2016-12-10] MEDS: HEPARIN/DEXTROSE 500 ML IV SCH (09:56)
[2016-12-10] MEDS ORDERED: PROTOCOL POTASSIUM 1 DOSE MISC PRN (10:29)
[2016-12-10] MEDS ORDERED: PROTOCOL MAGNESIUM 1 DOSE IV PRN (10:29)
[2016-12-10] MEDS ORDERED: POTASSIUM CL 10 MEQ TAB PO ONE ×3 (10:39→19:39)
[2016-12-10] MEDS ORDERED: POTASSIUM CL 10 MEQ TAB ONE (10:50)
--- NOTE | 2016-12-10 11:07 | HOSPPROG ---
Hospitalist Progress Note Assessment/Plan: 61F with recent dx of DVT on eliquis p/w acute embolic CVA. C/b encephalopathy and seizure. # goals of care - overall, she has improved since her initial event; i think that in a few more days she may be able to participate in her care and make her own decisions regarding hospice. she will also need to weigh in on further cancer workup, etc. i discussed this with her brother and he agrees. we will continue supportive care (AC, abx, IVF) for now, give her a few days here to clear but not escalate care. 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; change heparin to lovenox today - lipitor started # acute encephalopathy - improved from prior, AOx2 # pain - better today on low dose oxy; start low dose apap (follow LFTs) - discussed that oxy may be sedating her today - we would like to err on the side of keeping her comfortable at this point # seizure d/t CVA - on keppra # dysphagia - diet per speech # malignancy, unknown primary with diffuse hepatic mets - she has possible renal masses on CT - holding on further workup for now # hypoK - replete # hyperNa - change to 1/2NS # htn # acute hypoxic resp failure d/t PE, pna # suspected aspiration pneumonia - on merrem D#07/13 # DVT/PE - lovenox Subjective: not complaining of pain today; discussed at length with her brother , RN, pall care Objective: Vital Signs Temp Pulse Resp BP Pulse Ox 36.8 C 81 24 H 133/83 H 97 12/10/16 08:00 12/10/16 08:00 12/10/16 08:00 12/10/16 08:00 12/10/16 08:00 Laboratory Results 12/10/16 08:20 12/10/16 08:20 12/09/16 12/10/16 12/11/16 05:59 05:59 05:59 Intake Total 881.6 1582.6 Output Total 1900 1325 Balance -1018.4 257.6 PT 13.4 sec H 12/05/16 06:35 INR 1.2 12/05/16 06:35 - Time Spent With Patient Time Spent with Patient: greater than 35 minutes Time Spent with Patient: Greater than 35 minutes spent on this patients care, greater than 50% of time spent counseling, educating, and coordinating care regarding the above mentioned plan. - Physical Exam Constitutional: no apparent distress, appears nourished, other (very somnolent today; not moving left arm) ICD10 Worksheet Patient Problems: Problems Problem Status Onset Left arm weakness Acute Ischemic stroke Acute Palliative care encounter Acute
[2016-12-10] MEDS: ENOXAPARIN 60 MG/0.6 ML SYR SC SCH ×2 (11:29→21:21)
[2016-12-10] MEDS: ACETAMINOPHEN 325 MG TAB PO SCH ×2 (15:22→21:20)
--- NOTE | 2016-12-10 16:42 | ASMTCMCOM ---
CM Note CM Note Notes: Patient up in bed and eating today. Hospitalist would like to give her more time to clear and make her own decisions about Hospice, Rehab, Comfort measures, etc. Date Signed: 12/10/2016 04:42 PM Electronically Signed By:Mckenna Cerda
[2016-12-10 17:55] LABS: POTASSIUM 3.2 mEq/L (3.5-5.2)
[2016-12-10] MEDS: METHOCARBAMOL 750 MG TAB PO PRN (18:47)
[2016-12-10] MEDS: POTASSIUM Cl (KCl) 20 MEQ in 1/2 NS 1,000 ML IV SCH (21:23)
[2016-12-11] MEDS: FLUoxetine 10 MG CAP PO SCH ×4 (05:37→21:53)
[2016-12-11] MEDS: METHOCARBAMOL 750 MG TAB PO PRN ×2 (05:37→13:38)
[2016-12-11] MEDS: MEROPENEM 1 GM in NS 100 ML IV SCH ×3 (05:37→22:31)
[2016-12-11 05:44] LABS: ALANINE AMINOTRANSFERASE 96 IU/L (9-52); ALBUMIN 2.4 g/dL (3.5-5.0); ALKALINE PHOSPHATASE 790 IU/L (38-126); ANION GAP 8 mEq/L (8-16); ASPARTATE AMINOTRANSFERASE 161 IU/L (14-46); CALCIUM 8.4 mg/dL (8.5-10.4); CARBON DIOXIDE 27 mEq/l (22-31); CHLORIDE 105 mEq/L (97-110); CREATININE 0.5 mg/dL (0.6-1.0); GLOMERULAR FILTRATION RATE > 60; GLUCOSE 89 mg/dL (70-100); MAGNESIUM 1.9 mg/dL (1.6-2.3); POTASSIUM 3.7 mEq/L (3.5-5.2); SODIUM 140 mEq/L (134-144); TOTAL PROTEIN 4.9 g/dL (6.3-8.2)
[2016-12-11] MEDS ORDERED: POTASSIUM CL 10 MEQ TAB PO ONE ×3 (07:25→20:08)
[2016-12-11] MEDS: levETIRAcetam 500 MG in NS 100 ML IV SCH ×2 (10:20→21:53)
[2016-12-11] MEDS: ENOXAPARIN 60 MG/0.6 ML SYR SC SCH ×2 (10:21→21:53)
[2016-12-11] MEDS: ACETAMINOPHEN 325 MG TAB PO SCH ×3 (10:22→21:52)
[2016-12-11] MEDS: oxyCODONE IR 5 MG TAB PO PRN ×2 (10:23→21:54)
[2016-12-11] MEDS: ATORVASTATIN CALCIUM 40 MG TAB PO SCH (10:23)
[2016-12-11] MEDS: POTASSIUM Cl (KCl) 20 MEQ in 1/2 NS 1,000 ML IV SCH (10:27)
--- NOTE | 2016-12-11 14:55 | PDPCPN ---
Palliative Care Progress Note Assessment/Plan: HPI: Stas rubio is a 61 yo female admitted to the hospital with fall and left sided weakness. Found to have CVA. Hospitalization complicated by seizures, AMS , and resp distress. Being treated for possible aspiration PNA. Also new findings of liver mets on u/s of liver. Palliative care consulted for complex medical decision making. Met with Stas and Hank this morning. Stas was awake and able to particpate more in the discussion. Per Hank Stas told him this morning she would rather have no pain but live a shorter time than have some pain and live longer. She repeated to us she does not want to be in pain and wants to be comfortable. She does have goals of seeing if she can improve some to be able to draw and increase her quality of life. We discussed with Hank the options including rehab vs hospice care. He is hoping to learn more about potential prognosis and which options might be best for Stas right now. We discussed can always change to comfort care if there is no longer a benefit from participating in rehab therapies. Filled out a MDPOA and MOST form. Assessment: Physical: - Pain: back pain - tylenol PRN - reposition as needed - Dyspnea: improving - on antibiotics and lasix - oxygen as needed - a fan can sometimes help dyspnea - poor appetite - ongoing prior to admission - speech eval when able Emotional/psychological: Hx of depression and anxiety: continue prozac as able - haldol PRN for agitation Advanced Care Planning: Is patient decisional?: yes Code Status: DNR POA: Her Brother Hank is MDPOA. Plan: Possible rehab at discharge to support her goals of increasing quality of life (being able to draw) until there is no longer a benefit then possibly move to LTC and hospice care. Subjective: my back hurts Objective: Vital Signs Temp Pulse Resp BP Pulse Ox 36.3 C 67 14 158/87 H 96 12/11/16 12:00 12/11/16 12:00 12/11/16 12:00 12/11/16 12:00 12/11/16 12:00 Microbiology 12/06/16 09:05 Blood Culture - Final Blood Laboratory Results 12/10/16 08:20 12/11/16 04:52 12/10/16 12/11/16 12/12/16 05:59 05:59 05:59 Intake Total 1582.6 4800 Output Total 1325 1250 Balance 257.6 3550 PT 13.4 sec H 12/05/16 06:35 INR 1.2 12/05/16 06:35 Physical Exam - Physical Exam General Appearance: alert, mild distress Respiratory: No respiratory distress, No accessory muscle use Skin: normal color, warm/dry Extremities: No pedal edema Neuro/Psych: alert, oriented x 3 ICD10 Worksheet Patient Problems: Problems Problem Status Onset Ischemic stroke Acute Left arm weakness Acute Palliative care encounter Acute - ICD10 Problem Qualifiers (1) Palliative care encounter
--- NOTE | 2016-12-11 16:16 | HOSPPROG ---
Hospitalist Progress Note Assessment/Plan: 61-year-old female with a history of a DVT on Eliquis was admitted with acute CVA. The CVA was felt to be embolic. She had a resulting encephalopathy and seizure. In the evaluation she was found to have multiple abnormalities of the liver felt to be made metastatic carcinoma of an unknown origin. Patient is new to me today - acute encephalopathy secondary to an acute CVA. Patient has now significantly improved and is able to participate in her care. She has participated in a palliative care consultation today and desires to be engage with palliative care rather than hospice care - acute embolic CVA - suspect cardiac; change heparin to lovenox today - lipitor started -pain - better today on low dose oxy; start low dose apap (follow LFTs); discussed the need to limit narcotic medication so that she can be more clear mentally. -seizure d/t CVA - on keppra; No new seizures - dysphagia - diet per speech # malignancy, unknown primary with diffuse hepatic mets - she has possible renal masses on CT - due to the number of medical problems here on oncology consult has been requested. Though we do not know the primary it will be helpful for the patient in decision making. -hypoK - replete -hyperNa - change to 1/2NS; leukocytosis; Anemia: Will continue the follow these items. - htn -acute hypoxic resp failure d/t PE, pna; Resolved continues on supplemental nasal prong oxygen. -suspected aspiration pneumonia - on merrem D#08/12 -DVT/PE - lovenox Plan: Palliative care consultation today and an Oncology consultation. Subjective: Reports some left-sided chest pain no nausea or vomiting or fever Objective: Vital Signs Temp Pulse Resp BP Pulse Ox 36.3 C 67 14 158/87 H 96 12/11/16 12:00 12/11/16 12:00 12/11/16 12:00 12/11/16 12:00 12/11/16 12:00 Microbiology 12/06/16 11:48 Blood Culture - Final Blood 12/06/16 09:05 Blood Culture - Final Blood Laboratory Results 12/10/16 08:20 12/11/16 04:52 12/10/16 12/11/16 12/12/16 05:59 05:59 05:59 Intake Total 1582.6 4800 Output Total 1325 1250 Balance 257.6 3550 PT 13.4 sec H 12/05/16 06:35 INR 1.2 12/05/16 06:35 - Time Spent With Patient Time Spent with Patient: greater than 35 minutes Time Spent with Patient: Greater than 35 minutes spent on this patients care, greater than 50% of time spent counseling, educating, and coordinating care regarding the above mentioned plan. - Pending Discharge Pending Discharge Within 24 Hours: No Pending Discharge Within 48 Hours: Yes Pending Discharge Date: 12/13/16 Pending Discharge Time: 11:00 - Physical Exam Constitutional: no apparent distress Eyes: PERRL Ears, Nose, Mouth, Throat: moist mucous membranes Cardiovascular: regular rate and rhythym, systolic murmur Respiratory: reduced air movement, inspiratory crackles, bronchial breath sounds Gastrointestinal: normoactive bowel sounds, soft, non-tender abdomen, no palpable masses Genitourinary: no bladder fullness Skin: warm Musculoskeletal: generalized weakness Neurologic: AAOx3, CN II-XII Intact Psychiatric: interacting appropriately ICD10 Worksheet Patient Problems: Problems Problem Status Onset Ischemic stroke Acute Left arm weakness Acute Palliative care encounter Acute
[2016-12-11] MEDS ORDERED: LACTULOSE 20 GM/30 ML UDCUP PO PRN ×2 (16:32→16:56)
[2016-12-11] MEDS ORDERED: POLYETHYLENE GLYCOL 3350 17 GM PKT PO PRN (16:32)
[2016-12-11] MEDS ORDERED: BISACODYL 10 MG SUPP PR PRN (16:32)
[2016-12-11] MEDS ORDERED: MAGNESIUM HYDROXIDE 30 ML UDCUP PO PRN (16:32)
[2016-12-11 17:52] LABS: POTASSIUM 3.6 mEq/L (3.5-5.2)
--- NOTE | 2016-12-11 17:56 | CPEKG ---
Heart Rate: 78 RR Interval: 769 P-R Interval: 120 QRSD Interval: 84 QT Interval: 392 QTC Interval: 447 P Orlando: 0 QRS Orlando: 18 T Wave Orlando: 28 EKG Severity - OTHERWISE NORMAL ECG - EKG Impression: SINUS RHYTHM EKG Impression: LOW VOLTAGE IN FRONTAL LEADS EKG Impression: COMPARED WITH 12/04/2016, QRS COMPLEX MORE NARROW Electronically Signed By: Asiya Johnson 11-Dec-2016 18:05:18
--- NOTE | 2016-12-11 20:06 | HOSPPROG ---
Hospitalist Progress Note Assessment/Plan: called that trop that was checked is 1.2 ekg w non specific t wave chnages on telemetry repeat trop dnr noted, notes reviewed Objective: Vital Signs Temp Pulse Resp BP Pulse Ox 36.4 C 88 16 148/79 H 95 12/11/16 17:28 12/11/16 17:28 12/11/16 17:28 12/11/16 17:28 12/11/16 16:00 Microbiology 12/06/16 11:48 Blood Culture - Final Blood 12/06/16 09:05 Blood Culture - Final Blood Laboratory Results 12/10/16 08:20 12/11/16 17:40 12/10/16 12/11/16 12/12/16 05:59 05:59 05:59 Intake Total 1582.6 4800 650 Output Total 1325 1250 1000 Balance 257.6 3550 -350 PT 13.4 sec H 12/05/16 06:35 INR 1.2 12/05/16 06:35 ICD10 Worksheet Patient Problems: Problems Problem Status Onset Ischemic stroke Acute Left arm weakness Acute Palliative care encounter Acute
[2016-12-11] MEDS ORDERED: SENNOSIDES/DOCUSATE SODIUM TAB PO SCH (21:00)
[2016-12-11] MEDS ORDERED: ASPIRIN 81 MG CHEWABLE TAB PO ONE (21:35)
[2016-12-11] MEDS: SENNOSIDES/DOCUSATE SODIUM TAB PO SCH (22:04)
[2016-12-12 05:21] LABS: % IMMATURE GRANULYOCYTES 1.3 % (0.0-1.1); ABSOLUTE IMMATURE GRANULOCYTES 0.22 10^3/uL (0.00-0.10); ADD DIFF? NO; ADD MORPH? NO; ADD SCAN? NO; ATYPICAL LYMPHOCYTE FLAG 10 (0-99); FRAGMENT RBC FLAG 20 (0-99); HEMATOCRIT 36.2 % (38.0-47.0); HEMOGLOBIN 11.3 g/dL (12.6-16.3); LEFT SHIFT FLG 10 (0-99); LIPEMIA HEMOLYSIS FLAG 80 (0-99); MEAN CELL HEMOGLOBIN 26.9 pg (27.9-34.1); MEAN CELL HEMOGLOBIN CONCENTR. 31.2 g/dL (32.4-36.7); MEAN CELL VOLUME 86.2 fL (81.5-99.8); PLATELET CLUMPS FLAG 20 (0-99); PLATELET COUNT 69 10^3/uL (150-400); RED CELL DISTRIBUTION WIDTH 15.9 % (11.5-15.2)
[2016-12-12 05:38] LABS: ANION GAP 6 mEq/L (8-16); CALCIUM 8.4 mg/dL (8.5-10.4); CARBON DIOXIDE 25 mEq/l (22-31); CHLORIDE 105 mEq/L (97-110); CREATININE 0.5 mg/dL (0.6-1.0); GLOMERULAR FILTRATION RATE > 60; GLUCOSE 87 mg/dL (70-100); POTASSIUM 4.2 mEq/L (3.5-5.2); SODIUM 136 mEq/L (134-144)
[2016-12-12] MEDS: FLUoxetine 10 MG CAP PO SCH ×4 (06:19→21:30)
[2016-12-12] MEDS: MEROPENEM 1 GM in NS 100 ML IV SCH ×3 (06:19→22:14)
[2016-12-12] MEDS: levETIRAcetam 500 MG in NS 100 ML IV SCH ×2 (09:41→21:30)
[2016-12-12] MEDS: ENOXAPARIN 60 MG/0.6 ML SYR SC SCH ×2 (09:44→21:30)
[2016-12-12] MEDS: ACETAMINOPHEN 325 MG TAB PO SCH ×3 (09:46→21:28)
[2016-12-12] MEDS: SENNOSIDES/DOCUSATE SODIUM TAB PO SCH ×2 (09:54→21:29)
[2016-12-12] MEDS: ATORVASTATIN CALCIUM 40 MG TAB PO SCH (09:54)
[2016-12-12] MEDS: METHOCARBAMOL 750 MG TAB PO PRN ×2 (10:04→21:29)
[2016-12-12] MEDS: oxyCODONE IR 5 MG TAB PO PRN ×2 (10:05→21:29)
[2016-12-12] MEDS ORDERED: POTASSIUM CL 10 MEQ TAB PO ONE (10:55)
[2016-12-12] MEDS: POTASSIUM Cl (KCl) 20 MEQ in 1/2 NS 1,000 ML IV SCH (11:08)
[2016-12-12 11:40] LABS: HEMATOCRIT 34.1 % (38.0-47.0)
--- NOTE | 2016-12-12 11:48 | HOSPPROG ---
Hospitalist Progress Note Assessment/Plan: 61-year-old female with a history of a DVT on Eliquis was admitted with acute CVA. The CVA was felt to be embolic. She had a resulting encephalopathy and seizure. In the evaluation she was found to have multiple abnormalities of the liver felt to be made metastatic carcinoma of an unknown origin. - acute encephalopathy secondary to an acute CVA. Patient has now significantly improved and is able to participate in her care. She has participated in a palliative care consultation today and desires to be engage with palliative care rather than hospice care - acute embolic CVA - suspect cardiac; change heparin to lovenox today - lipitor started -pain - better today on low dose oxy; start low dose apap (follow LFTs); discussed the need to limit narcotic medication so that she can be more clear mentally. -seizure d/t CVA - on keppra; No new seizures - dysphagia - diet per speech # malignancy, unknown primary with diffuse hepatic mets - she has possible renal masses on CT - due to the number of medical problems here on oncology consult has been requested. Though we do not know the primary it will be helpful for the patient in decision making. -hypoK - replete -hyperNa - change to 1/2NS; leukocytosis; Anemia: Will continue the follow these items. - htn -acute hypoxic resp failure d/t PE, pna; Resolved continues on supplemental nasal prong oxygen. -suspected aspiration pneumonia - on merrem D#08/12 -DVT/PE - lovenox Plan: Palliative care consultation today and an Oncology consultation. Subjective: No complaints and not responsive specifically to commands or questions Objective: Vital Signs Temp Pulse Resp BP Pulse Ox 37.2 C 81 14 149/93 H 93 12/12/16 11:23 12/12/16 11:23 12/12/16 11:23 12/12/16 11:23 12/12/16 11:23 Microbiology 12/06/16 11:48 Blood Culture - Final Blood 12/06/16 09:05 Blood Culture - Final Blood Laboratory Results 12/12/16 11:33 12/12/16 04:52 12/11/16 12/12/16 12/13/16 05:59 05:59 05:59 Intake Total 4800 2095 Output Total 1250 1500 Balance 3550 595 PT 13.4 sec H 12/05/16 06:35 INR 1.2 12/05/16 06:35 Laboratory Tests 12/07/16 12/10/16 12/11/16 05:20 08:00 17:40 WBC Hgb Plt Count 114 L Heparin Anti-Xa, Unfract 0.30 L Troponin I 1.220 H 12/11/16 12/12/16 12/12/16 20:30 04:52 04:52 WBC 16.78 H Hgb 11.3 L Plt Count 69 L D Heparin Anti-Xa, Unfract Troponin I 1.290 H Not Reported - Time Spent With Patient Time Spent with Patient: greater than 35 minutes Time Spent with Patient: Greater than 35 minutes spent on this patients care, greater than 50% of time spent counseling, educating, and coordinating care regarding the above mentioned plan. - Pending Discharge Pending Discharge Within 24 Hours: No Pending Discharge Within 48 Hours: No - Physical Exam Constitutional: no apparent distress, chronically ill appearing, cachectic Eyes: PERRL, anicteric sclera Ears, Nose, Mouth, Throat: moist mucous membranes, other (Cannot determine her hearing. No signs of oral thrush or oral lesions) Cardiovascular: regular rate and rhythym, systolic murmur Respiratory: no respiratory distress, no rales or rhonchi Gastrointestinal: other (Hypoactive bowel sounds. Liver percusses to be enlarged and tender with mild tenderness overall in the abdomen without a palpable or pulsatile mass) Genitourinary: no bladder fullness, other (Piña is in place) Skin: warm, other (Pale overall) Neurologic: facial droop, other (Left-sided hand and foot weakness with a but upgoing Babinski on the left.) ICD10 Worksheet Patient Problems: Problems Problem Status Onset Left arm weakness Acute Ischemic stroke Acute Palliative care encounter Acute
--- NOTE | 2016-12-12 11:56 | GCON ---
[f rep st] CONSULTATION MEDICAL ONCOLOGY CONSULTATION REFERRING PHYSICIAN: Corky Guillory Jr., MD REASON FOR CONSULTATION: Probable widespread metastatic cancer. Consultation is for further directi on and workup. RECOMMENDATIONS: 1. We will check a variety of tumor markers, including CA-125, CA-15-3, a CEA and a CA-19-9. These may help us to narrow down the possibilities as far as an underlying etiology is concerned. 2. The degree of workup to undertake will in large part depend on her neurologic status. If her fun ctional status remains ECOG 4, even tumors with multiple treatment options, such as breast or colon c ancer, tend to have a poor outcome with therapy with significant clinical functional compromise. If her functional status remains poor, best supportive care and hospice may be the appropriate course of action in view of the extremely high clinical suspicion of (99% plus) that this represents a widespr ead underlying incurable malignancy. 3. Will need to look to see if the patient is having any gastrointestinal blood loss. 4. The patient's platelets will need to be monitored. ASSESSMENT: This 61-year-old white female with a very long history of anorexia, presents with a lowe r extremity deep venous thrombosis and apparently had a cerebrovascular accident while in the emergen cy room. She has residual dense hemiparesis. She is able answer simple questions, but has severe ne urologic deficits at this time. Her brother is at the bedside who supplies most of the information t leidy. Apparently, there have been some episodes of nausea and decreased appetite prior to the recent events. He did not think this was particularly unusual, based on her history of anorexia and sympto ms associated with that. He did note, however, that the decrease in appetite seemed to be relatively new. The patient did not complain of any new masses or change in bowel or bladder habits. There is a strong family history of colon cancer. The patient's brother believes she had a recent colonoscop y, although the details on this are unclear and will need to have further evaluation. She has not conner d mammography. However, her breast exam is not clinically suspicious. She, unfortunately, also does not have an easily identified abnormal palpable lymph node in the neck, axilla, or groin bilaterally . Therefore, if we do decide to more aggressively pursue a diagnosis, she will need a liver biopsy. This is more problematic because of her recent DVT, stroke and her need for heparin anticoagulation. We will continue to follow along with you at this time. Will look at her lab work as it becomes avai lable and continue to discuss with her health care team and the family members whether additional wor kup is appropriate. Again, in large part, this would depend on if she recovers a reasonable amount o f functional status. HISTORY OF PRESENT ILLNESS: Please see assessment. PAST MEDICAL HISTORY: Is obtained from the patient's brother and the chart. She apparently has a hi story of anorexia going back at least 35 years. She has been in counseling for it. She also has a h istory of depression and anxiety. SOCIAL HISTORY: The patient does not smoke. She lives with her . FAMILY HISTORY: Remarkable for both colon cancer and what sounds like a leiomyosarcoma. REVIEW OF SYSTEMS: Is unremarkable for recent unexplained changes in weight. She did have complaint s of decreased appetite. A current 10 system review is otherwise difficult to obtain. PHYSICAL EXAMINATION: GENERAL: Reveals a white female lying on her left side. She is able to answe r simple questions. HEENT: Her sclerae are anicteric. Her mouth shows decreased oral mucous membra ne moisture. LUNGS: Show no rales or rhonchi. CARDIAC: Shows a regular rhythm. ABDOMEN: Shows a distended abdomen with a hard liver edge palpated approximately 8 cm below the right costal margin. LOWER EXTREMITIES: Show no edema at this time. LABORATORY DATA: Her CBC shows a white count of 16.78 with a hemoglobin of 11.3, an MCV of 86.2, and a platelet count of 69,000. Her chemistries show an elevated AST and ALT, as well as an elevated al kaline phosphatase at 790. Her total bilirubin is normal at 1.0. Tumor markers are pending. Thank you very much for allowing us to participate in this woman's workup and care. Additional recom mendations to follow. /[id number]/MODL
[2016-12-12 14:00] LABS: % SATURATION 87 % (20-55); TOTAL IRON BINDING CAPACITY 224 ug/dL (260-490)
--- NOTE | 2016-12-12 15:26 | HOSPPROG ---
Hospitalist Progress Note Assessment/Plan: 61-year-old female with a history of a DVT on Eliquis was admitted with acute CVA. The CVA was felt to be embolic. She had a resulting encephalopathy and seizure. In the evaluation she was found to have multiple abnormalities of the liver felt to be made metastatic carcinoma of an unknown origin. - acute encephalopathy secondary to an acute CVA. Patient has minimally improved and is minimally interactive today. Yesterday she participated in a palliative care consultation and it was decided against having hospice care. Today she is considerably less responsive. - acute embolic CVA - suspect cardiac; a patent foramina ovale is not found and so it is possible it was secondary to a rhythm disturbance although we have not seen any rhythm change on monitor here. Patient is currently on Lovenox full dose anticoagulation. - lipitor started -pain - better today on low dose oxy; start low dose apap (follow LFTs); discussed the need to limit narcotic medication so that she can be more clear mentally. -seizure d/t CVA - on keppra; No new seizures - dysphagia - diet per speech # malignancy, unknown primary with diffuse hepatic mets. I discussed the case with Dr. Brad Paulino for Oncology and he will consult today. Tumor markers have been ordered. Per the consultation it seems unlikely that the patient will have a tumor that will be sufficiently responsive to warrant aggressive care. -hypoK - replete -hyperNa - change to 1/2NS; leukocytosis; Anemia: Will continue the follow these items. - htn: Normotensive now -acute hypoxic resp failure d/t PE, pna; Resolved continues on supplemental nasal prong oxygen. -suspected aspiration pneumonia - on merrem D#09/12 -DVT/PE - lovenox Plan: Oncology consultation reviewed appreciated and discussed with Dr. Brad Paulino. In light of these findings further family conference regarding the extent and aggressiveness of care will be done. Subjective: Patient is minimally responsive and does not follow commands at this time she seems sedated. Objective: Vital Signs Temp Pulse Resp BP Pulse Ox 37.2 C 81 14 149/93 H 93 12/12/16 11:23 12/12/16 11:23 12/12/16 11:23 12/12/16 11:23 12/12/16 11:23 Microbiology 12/06/16 11:48 Blood Culture - Final Blood 12/06/16 09:05 Blood Culture - Final Blood Laboratory Results 12/12/16 11:33 12/12/16 04:52 12/11/16 12/12/16 12/13/16 05:59 05:59 05:59 Intake Total 4800 2095 Output Total 1250 1500 Balance 3550 595 PT 13.4 sec H 12/05/16 06:35 INR 1.2 12/05/16 06:35 - Time Spent With Patient Time Spent with Patient: greater than 35 minutes Time Spent with Patient: Greater than 35 minutes spent on this patients care, greater than 50% of time spent counseling, educating, and coordinating care regarding the above mentioned plan. - Pending Discharge Pending Discharge Within 24 Hours: No Pending Discharge Within 48 Hours: No - Physical Exam Constitutional: chronically ill appearing, cachectic Eyes: PERRL, anicteric sclera Ears, Nose, Mouth, Throat: moist mucous membranes, no oral mucosal ulcers Cardiovascular: regular rate and rhythym, systolic murmur, JVD (No edema or JVD elevation.), edema Respiratory: inspiratory crackles (Inspiratory crackles heard in the left anterior chest without signs of respiratory distress or rhonchi. She has reduced air movement.) Gastrointestinal: other (Liver is enlarged percusses and is tender. The abdomen is slightly tender overall but no palpable mass or rebound other than the enlarged liver is noted) Genitourinary: no bladder fullness Musculoskeletal: generalized weakness Neurologic: facial droop (Left facial droop and left-sided sondra paresis is noted ) ICD10 Worksheet Patient Problems: Problems Problem Status Onset Ischemic stroke Acute Left arm weakness Acute Palliative care encounter Acute
[2016-12-12 22:29] LABS: POTASSIUM 4.8 mEq/L (3.5-5.2)
[2016-12-13 05:42] LABS: % IMMATURE GRANULYOCYTES 1.4 % (0.0-1.1); ABSOLUTE IMMATURE GRANULOCYTES 0.29 10^3/uL (0.00-0.10); ABSOLUTE NRBC COUNT 0.17 10^3/uL (0-0.01); ADD DIFF? NO; ADD MORPH? NO; ADD SCAN? NO; ATYPICAL LYMPHOCYTE FLAG 30 (0-99); FRAGMENT RBC FLAG 20 (0-99); HEMATOCRIT 29.7 % (38.0-47.0); HEMOGLOBIN 9.6 g/dL (12.6-16.3); LEFT SHIFT FLG 70 (0-99); LIPEMIA HEMOLYSIS FLAG 80 (0-99); MEAN CELL HEMOGLOBIN 27.2 pg (27.9-34.1); MEAN CELL HEMOGLOBIN CONCENTR. 32.3 g/dL (32.4-36.7); MEAN CELL VOLUME 84.1 fL (81.5-99.8); NRBC-AUTO% 0.8 % (0.0-0.2); PLATELET CLUMPS FLAG 10 (0-99); RED BLOOD CELL COUNT 3.53 10^6/uL (4.18-5.33); RED CELL DISTRIBUTION WIDTH 16.7 % (11.5-15.2)
[2016-12-13 05:43] LABS: PLATELET COUNT 45 10^3/uL (150-400)
[2016-12-13 05:53] LABS: ALANINE AMINOTRANSFERASE 624 IU/L (9-52); ALBUMIN 2.3 g/dL (3.5-5.0); ALKALINE PHOSPHATASE 993 IU/L (38-126); ANION GAP 9 mEq/L (8-16); BILIRUBIN,TOTAL 2.1 mg/dL (0.1-1.4); CARBON DIOXIDE 23 mEq/l (22-31); CHLORIDE 104 mEq/L (97-110); CREATININE 1.6 mg/dL (0.6-1.0); GLOMERULAR FILTRATION RATE 33; GLUCOSE 94 mg/dL (70-100); MAGNESIUM 1.9 mg/dL (1.6-2.3); SODIUM 136 mEq/L (134-144); TOTAL PROTEIN 4.5 g/dL (6.3-8.2)
[2016-12-13] MEDS: FLUoxetine 10 MG CAP PO SCH (05:54)
[2016-12-13] MEDS: MEROPENEM 1 GM in NS 100 ML IV SCH (05:55)
[2016-12-13 06:12] LABS: PLATELET ESTIMATE DECREASED (ADEQ)
[2016-12-13 06:21] LABS: ASPARTATE AMINOTRANSFERASE 2189 IU/L (14-46)
[2016-12-13 06:28] LABS: BILIRUBIN-CONJUGATED 1.2 mg/dL (0.0-0.5); BILIRUBIN-UNCONJUGATED 0.9 mg/dL (0.0-1.1)
[2016-12-13 07:13] VITALS: RESP 16
--- NOTE | 2016-12-13 08:57 | SOAPPROG ---
SOAP Progress Note Assessment/Plan: Assessment: - Clinical picture, family history, and markedly elevated CEA (1350) all point to a metastatic incurable GI malignancy. Her ECOG PS remains 4. Even with a more specific diagnosis, her functional status precludes cytotoxic chemo which would be the palliative treatment of choice. I recommend no invasive workup or biopsy. I recommended best supportive care/hospice to the patient and her brother who was at the bedside. Her prognosis is likely measured in a few weeks to a month or so. - moderately elevated CA125 is likely related to her ascites and not to a gynecologic malignancy Plan: I would recommend Hospice consultation. I'll sign off for now. Please call with questions. Subjective: Barely responsive to voice. Objective: Vital Signs Temp Pulse Resp BP Pulse Ox 36.8 C 95 16 138/84 H 89 L 12/13/16 07:12 12/13/16 07:12 12/13/16 07:12 12/13/16 07:12 12/13/16 07:12 Laboratory Results 12/13/16 05:18 12/13/16 05:18 12/11/16 12/12/16 12/13/16 23:59 23:59 23:59 Intake Total 2675 1445 1520 Output Total 1700 900 300 Balance 029 724 9307 PT 13.4 sec H 12/05/16 06:35 INR 1.2 12/05/16 06:35 Physical Exam - Physical Exam General Appearance: other (appears to be comfortable) ICD10 Worksheet Patient Problems: Problems Problem Status Onset Ischemic stroke Acute Left arm weakness Acute Palliative care encounter Acute
[2016-12-13] MEDS: levETIRAcetam 500 MG in NS 100 ML IV SCH (10:25)
[2016-12-13] MEDS: SENNOSIDES/DOCUSATE SODIUM TAB PO SCH (10:40)
[2016-12-13] MEDS: ACETAMINOPHEN 325 MG TAB PO SCH (10:40)
[2016-12-13] MEDS: ATORVASTATIN CALCIUM 40 MG TAB PO SCH (11:08)
[2016-12-13] MEDS: ENOXAPARIN 60 MG/0.6 ML SYR SC SCH (11:10)
--- NOTE | 2016-12-13 11:22 | HOSPPROG ---
Hospitalist Progress Note Assessment/Plan: 61-year-old female with a history of a DVT on Eliquis was admitted with acute CVA. The CVA was felt to be embolic. She had a resulting encephalopathy and seizure. In the evaluation she was found to have multiple abnormalities of the liver felt to be made metastatic carcinoma of an unknown origin. - acute encephalopathy secondary to an acute CVA. Patient has minimally improved and is minimally interactive today. Yesterday she participated in a palliative care consultation and it was decided against having hospice care. Today she is considerably less responsive. - acute embolic CVA - suspect cardiac; a patent foramina ovale is not found and so it is possible it was secondary to a rhythm disturbance although we have not seen any rhythm change on monitor here. Patient is currently on Lovenox full dose anticoagulation. - lipitor started -pain - better today on low dose oxy; start low dose apap (follow LFTs); discussed the need to limit narcotic medication so that she can be more clear mentally. -seizure d/t CVA - on keppra; No new seizures - dysphagia - diet per speech - Malignancy: probable incurable GI malignancy with markedly elevated CEA at 1350. Clinical picture, family history, and markedly elevated CEA (1350) all point to a metastatic incurable GI malignancy. - moderately elevated CA125 is likely related to her ascites and not to a gynecologic malignancy -hypoK - replete -hyperNa - change to 1/2NS; leukocytosis; Anemia: Will continue the follow these items. - htn: Normotensive now -acute hypoxic resp failure d/t PE, pna; Resolved continues on supplemental nasal prong oxygen. -suspected aspiration pneumonia - on merrem D#6/ -DVT/PE - lovenox Plan: Hospice care consult today the above plan was discussed with her brother Hank and with Heidy the nurse. Medications have been clarified and she will be placed on p. O. Roxanol Ativan and Senokot. Patient will be discharged to [facility] as soon as a bed is available. Patient currently is comfort care measures only DNR. Time 40 minutes Subjective: Minimal response but reports right sided chest pain Objective: Vital Signs Temp Pulse Resp BP Pulse Ox 36.8 C 95 16 138/84 H 89 L 12/13/16 07:12 12/13/16 07:12 12/13/16 07:12 12/13/16 07:12 12/13/16 07:12 Laboratory Results 12/13/16 05:18 12/13/16 05:18 12/12/16 12/13/16 12/14/16 05:59 05:59 05:59 Intake Total 2095 1520 Output Total 1500 700 Balance 595 820 PT 13.4 sec H 12/05/16 06:35 INR 1.2 12/05/16 06:35 - Time Spent With Patient Time Spent with Patient: greater than 35 minutes Time Spent with Patient: Greater than 35 minutes spent on this patients care, greater than 50% of time spent counseling, educating, and coordinating care regarding the above mentioned plan. - Pending Discharge Pending Discharge Within 24 Hours: Yes Pending Discharge Date: 12/14/16 Pending Discharge Time: 11:00 - Physical Exam Constitutional: chronically ill appearing, cachectic Eyes: PERRL, anicteric sclera Ears, Nose, Mouth, Throat: dry mucous membranes Cardiovascular: regular rate and rhythym, systolic murmur Respiratory: reduced air movement, bronchial breath sounds Gastrointestinal: other (hypoactive BS; tenderness overall) Genitourinary: no bladder fullness Skin: other (pale and cool in places) Musculoskeletal: generalized weakness Psychiatric: other (sedated primarily and hard to arounse) ICD10 Worksheet Patient Problems: Problems Problem Status Onset Ischemic stroke Acute Left arm weakness Acute Palliative care encounter Acute
[2016-12-13] MEDS ORDERED: oxyCODONE IR 5 MG TAB PO PRN (11:30)
[2016-12-13] MEDS ORDERED: morphINE 10 MG/0.5 ML UDSYR PO PRN (11:42)
[2016-12-13] MEDS ORDERED: LORazepam 1 MG/0.5 ML UDSYR PO PRN (11:43)
[2016-12-13] MEDS ORDERED: SENNOSIDES 17.6 MG/10 ML UDL PO SCH (11:45)
[2016-12-13 15:50] VITALS: BP 145/81; PULSE 93; TEMP 98.4; O2SAT 88
--- NOTE | 2016-12-13 17:31 | PDIAF ---
- Diagnosis Code Status: Do Not Resuscitate - Medication Management Discharge Medications: Medications to Continue on Transfer LORazepam [Ativan inj 2 mg/ml (*)] 1 mg IV Q1H PRN #30 ml 12/13/16 [Last Taken Unknown] morphINE [Roxanol 10 mg/0.5 ml oral soln (*)] 5 - 10 mg PO Q2 PRN #30 ml [Last Taken Unknown] Discharge Medications: Refer to the Discharge Home Medication list for PRN reason. - Orders Oxygen: 1-2 liters per minute [employer] Diet Recommendation: no restrictions on diet Diet Texture: Regular Texture Diet, Dysphagia 1 - Pureed, [place] Thick Liquids Additional: Patient is on Hospice care - Follow Up Care Current Providers and Referrals: Brad Santiago [Primary Care Provider] - As per Instructions
[2016-12-13 18:48] LABS: HEPARIN INDUCED ANTIBODY Negative (Negative); HEPARIN-PF4 IgG ANTIBODY ELISA < 0.075 OD (<0.400)
--- NOTE | 2016-12-13 19:01 | GDS ---
[f rep st] DISCHARGE SUMMARY KNOWN ACUTE DIAGNOSES: On this admission: 1. Embolic cerebrovascular accident. 2. Pulmonary embolus. 3. Metastatic carcinoma, primary unknown. 4. Acute encephalopathy, secondary to the acute cerebrovascular accident. 5. Seizure disorder. 6. Electrolyte disorders of hypokalemia, hypernatremia, corrected. 7. Acute hypoxic respiratory failure, secondary to pulmonary embolism and pneumonia, resolved at dis charge, on supplemental oxygen. 8. Possible aspiration pneumonia on day 7 of 7 on Merrem. CONSULTATIONS: Neurosurgery, Neurology, Intensive Care Medicine, Palliative Care Medicine, Hospice C are, and Oncology. PROCEDURES: 1. Brain MRI. 2. Cervical spine MRI. 3. Echocardiogram. HOSPITAL COURSE: This is a 61-year-old female who presented with a left-sided weakness. She had a k nown history of a DVT and was on Eliquis at the time. Evaluation showed that she had a CVA with mult iple shower ischemic areas, presumed secondary to an embolic phenomenon. Presumed source was the hea rt. She also was noted to be have findings of a pneumonia and a pulmonary embolus. Further evaluati on and a CT of the abdomen showed diffuse probable metastatic disease throughout the abdomen, promine nt in the liver. Tumor markers of CA-125, CA-15-3, CEA and CA 19-19 were all elevated. The most pro bable diagnosis was a gastrointestinal tumor with widely metastatic. She was evaluated by Oncology a nd felt to have a very aggressive malignancy which was widely metastatic, along with a severe coagulo briana causing the embolic CVA and the prior DVT. During the hospitalization she was on heparin antic oagulation and on Merrem for presumed aspiration pneumonia. She suffered acute respiratory failure b ut progressively improved under treatment with anticoagulation and antibiotics. Oncology consulted a nd felt that the patient's malignancy was highly aggressive and could not be effectively treated with chemotherapy appropriately, given the patient's severe developed debilitated state and compromised m edical conditions. The family then decided upon hospice care. At that point, all medications except medications for comfort were stopped. She was placed on Roxanol, liquid Ativan for anxiety, and jose n. DISCHARGE MEDICATIONS: Discontinued medications were Prozac, Wellbutrin, Eliquis, Tylenol. New medications will be: Roxanol and liquid Ativan. PLAN: The patient is being discharged to the [facility] for hospice care. The patient's condition at time of discharge was critical and felt to be terminal. TIME: This discharge required 45 minutes, greater than 50% to educational guidance counselor and coordinate, and explain ma tters to the family. /[id number]/MODL
== END 2016-12-13 18:10 | disposition hospice, home (50) | DRG 64 ==
LOC: F2N 12-05 01:24 → F3N 12-06 12:34 → F2N 12-07 06:21 → F3N 12-07 17:34
PROVIDERS: ADMIT Internal Medicine; ATTEND Internal Medicine Pulmonary Disease
DX: I63.443 Cerebral infarction due to embolism of bilateral cerebellar arteries (principal); I63.413 Cerebral infarction due to embolism of bilateral middle cerebral arteries; I63.423 Cerebral infarction due to embolism of bilateral anterior cerebral arteries; I63.433 Cerebral infarction due to embolism of bilateral posterior cerebral arteries; G81.94 Hemiplegia, unspecified affecting left nondominant side; R47.01 Aphasia; R56.9 Unspecified convulsions; F05 Delirium due to known physiological condition; I26.99 Other pulmonary embolism without acute cor pulmonale; J69.0 Pneumonitis due to inhalation of food and vomit; J96.01 Acute respiratory failure with hypoxia; Z86.718 Personal history of other venous thrombosis and embolism; Z79.01 Long term (current) use of anticoagulants; C78.7 Secondary malignant neoplasm of liver and intrahepatic bile duct; C26.9 Malignant neoplasm of ill-defined sites within the digestive system; E87.6 Hypokalemia; E87.0 Hyperosmolality and hypernatremia; F32.9 Major depressive disorder, single episode, unspecified; F41.9 Anxiety disorder, unspecified; Z87.891 Personal history of nicotine dependence
CPT/HCPCS: 82947-QW; 85301-90; 85520-90; 86022-90; 86300-90; 86301-90; 86304-90; 92507-GN; 92523-GN; 92526-GN; 92610-GN; 97110-GP; 97112-GP; 97163-GP; 97167-GO; 97168-GO; 97530-GO; 97530-GP; 97535-GO; G0472; J0295; J1644; J1650; J1940; J1953; J2060; J2185; J2250; J2405; Q9957; Q9967